=== PATIENT | female | born 1930 | race Caucasian/White ===

== ENCOUNTER 2019-01-13 19:46 | Inpatient (IN) | payer MEDICARE, BC ==
[~2019-01-13] VITALS: Ht 165.1 cm; Wt 83.4 kg
[2019-01-13] MEDS ORDERED: COZAAR100 MG PO (19:56)
[2019-01-13] MEDS ORDERED: ZOLOFT50 MG PO (19:56)
[2019-01-13] MEDS ORDERED: PLAVIX75 MG PO (19:56)
[2019-01-13] MEDS ORDERED: BAYER CHEWABLE81 MG PO (19:56)
[2019-01-13] MEDS ORDERED: VITAMIN D2000 UNIT PO (19:56)
[2019-01-13] MEDS ORDERED: HYDROCHLOROTH12.5 M1 PO (19:57)
[2019-01-13] MEDS ORDERED: BENTYL10 MG PO (19:57)
[2019-01-13 20:32] LABS: APTT 30.5 SECONDS (22.8-39.4); INR 1.28 (0.85-1.17); PROTIME 15.4 SECONDS (11.6-15.0)
[2019-01-13 20:34] LABS: HEMATOCRIT 39.5 % (36.0-48.0); HEMOGLOBIN 13.5 g/dL (12-16); MCH 28.3 pg (26.0-34.0); MCHC 34.2 g/dL (31.0-37.0); MCV 82.8 fL (80.0-100.0); MEAN PLATELET VOLUME 11.1 fL (7.4-10.4); PLATELET COUNT 457 10x3/uL (130-400); RBC 4.77 10x6/uL (4.00-5.40); RDW 13.5 % (11.5-14.5); WBC 23.1 10x3/uL (4.8-10.8)
[2019-01-13 20:37] LABS: APPEARANCE CLOUDY (CLEAR); BILIRUBIN NEGATIVE (NEGATIVE); COLOR YELLOW (YELLOW); GLUCOSE NEGATIVE (NEGATIVE); KETONE NEGATIVE (NEGATIVE); NITRITE NEGATIVE (NEGATIVE); PROTEIN 1+ mg/dL (NEGATIVE); UROBILINOGEN NORMAL (NORMAL)
[2019-01-13 20:39] LABS: ALBUMIN 2.2 g/dL (3.4-5.0); ALKALINE PHOSPHATASE 547 U/L (46-116); ALT (SGPT) 119 U/L (10-68); BILIRUBIN - TOTAL 0.85 mg/dL (0.2-1.3); CALC OSMOLALITY 285 mosm/kg (275-300); CALCIUM 8.9 mg/dL (8.5-10.1); CARBON DIOXIDE 25.9 mmol/L (21.0-32.0); CHLORIDE - SERUM 97 mmol/L (98-107); CREATININE - SERUM 2.6 mg/dL (0.6-1.3); GLUCOSE 149 mg/dL (74-106); SODIUM 133 mmol/L (136-145); UREA NITROGEN 61 mg/dL (7-18); eGFR NON AFRICAN AMERICAN 18 mL/min (90-120)
[2019-01-13 20:39] LABS: WHITE CELLS - URINE 0-5 /hpf (0-5)
[2019-01-13 20:40] LABS: BACTERIA MANY /hpf (NONE SEEN); RED CELLS - URINE 0-5 /hpf (0-5)
[2019-01-13 20:40] LABS: D-DIMER-QUANTITATIVE 7.17 ug/mLFEU (0.20-0.54)
[2019-01-13 20:53] LABS: LYMPHOCYTES 1 % (15-50); MONOCYTES 1 % (2-11); NEUTROPHILS 94 % (40-80); PLATELET ESTIMATE NORMAL
[2019-01-13 20:55] LABS: CREATINE KINASE 372 UL (21-215)
[2019-01-13 20:57] LABS: TROPONIN-I 0.459 ng/mL (0.000-0.060)
--- NOTE | 2019-01-13 22:20 | NUR ---
IV AZITHROMYCIN 500MG STARTED
--- NOTE | 2019-01-13 22:30 | NUR ---
STARTED IV AZITHROMYCIN
[2019-01-14] VITALS (7 sets, daily range): BP systolic 95–137; BP diastolic 42–84; Ht 165.1 cm; Wt 83.4 kg
--- NOTE | 2019-01-14 00:10 | NUR ---
PT ARRIVED TO FLOOR VIA STRETCHER WITH ER STAFF. TRANSFERRED TO BED PT WAS NOTED TO BE SATURATED WITH URINE OF A FOUL ODOR. COMPLETE LINEN CHANGE PERFORMED. PT THEN LEFT FLOOR VIA BED WITH RADIOLOGY FOR LUNG PERFUSION SCAN.
--- NOTE | 2019-01-14 01:44 | NUR ---
INFORMED MD OF VQ SCAN RESULTS. NO FURTHER ORDERS GIVEN AT THIS TIME.
[2019-01-14 07:08] LABS: ALBUMIN 1.8 g/dL (3.4-5.0); ANION GAP 11.8 mmol/L (8-16); BILIRUBIN - TOTAL 0.48 mg/dL (0.2-1.3); CALCIUM 8.4 mg/dL (8.5-10.1); CARBON DIOXIDE 26.8 mmol/L (21.0-32.0); CREATININE - SERUM 2.5 mg/dL (0.6-1.3); POTASSIUM - SERUM 3.6 mmol/L (3.5-5.1); PROTEIN - SERUM 5.8 g/dL (6.4-8.2)
[2019-01-14 07:39] LABS: BASOPHILS 0.1 % (0-2); EOSINOPHILS 0.1 % (0-7); HEMATOCRIT 34.6 % (36.0-48.0); HEMOGLOBIN 11.8 g/dL (12-16); IMMATURE GRANULOCYTES 0.6 % (0-5); LYMPHOCYTES 2.5 % (15-50); MCH 28.4 pg (26.0-34.0); MCHC 34.1 g/dL (31.0-37.0); MCV 83.2 fL (80.0-100.0); MEAN PLATELET VOLUME 11.2 fL (7.4-10.4); MONOCYTES 6.7 % (2-11); PLATELET COUNT 372 10x3/uL (130-400); RBC 4.16 10x6/uL (4.00-5.40); RDW 13.5 % (11.5-14.5)
[2019-01-14 07:40] LABS: WBC 15.8 10x3/uL (4.8-10.8)
--- NOTE | 2019-01-14 11:02 | NUR ---
CONCERN EXPRESSED IN REGARDS TO PATIENTS HR WHICH HAS BEEN MOSTLY >160 SINCE 0730 THIS AM AND SHE HAS SPOKE WITH POPPY ON MED 3 MULTIPLE TIMES WITH NO INTERVENTION. I PLACED A CALL TO DR TRUJILLO'S OFFICE. SPOKE WITH NURSE MARK. EXPLAINED THAT THE PATIENT WAS CURRENTLY 168 ATR[address] FLUTTER AND HER HR AND RYTHUM HAS BEEN AN ISSUE SINCE 0730 THIS AM AND IT WAS MY UNDERSTANDING THAT DR TRUJILLO HAS NOT BEEN NOTIFIED. ASKED IF HE WANTED US TO HAVE A CARDIOLOGY CONSULT AND POSSIBLY TRANSFER TO THE PCU. SHE STATED SHE WAS GOING TO TALK TO DR TRUJILLO AND CALL ME BACK. IN LESS THAN 2 MINUTES, RETURN CALL RECEIVED, ORDERS RECEIVED, READ BACK AND THEN ENTERED INTO THE SYSTEM. NOTIFIED AGUS ANGELINDIVIDUAL SMALL GROUP INSTRUCTOR. PT GOING TO ROOM 2122.
--- NOTE | 2019-01-15 02:20 | NUR ---
LAST DOSE OF IV DIGOXIN GIVEN. HR 96 CAF. PT RESTING/SOME MOANING AT TIMES. NOT CLEAR WHAT HER NEEDS ARE. SHE IS CLEAN/DRY AND REPOSITIONED FOR COMFORT.
[2019-01-15 04:00] VITALS: BP 112/49
--- NOTE | 2019-01-15 08:16 | NUR ---
BILAT SCD ON ORDERED.
[2019-01-15 08:33] VITALS: BP 107/49
--- NOTE | 2019-01-15 09:47 | NUR ---
TELEMETRY CAF. REPOSITIONED IN BED FOR COMFORT. BED ALARM ON FOR SAFTEY. WILL CONT. PLAN OF CARE.
--- NOTE | 2019-01-15 11:54 | NUR ---
ECHO COMPLETED AT BS.
[2019-01-15 12:16] VITALS: BP 97/51
[2019-01-15 15:45] VITALS: BP 106/55
--- NOTE | 2019-01-15 19:46 | NUR ---
INITIAL ROUNDS AND ASSESSMENT COMPLETED. PT RESTING. NO DISTRESS. MONITOR AND CPOC. CALL LIGHT IN REACH.
[2019-01-15 20:22] VITALS: BP 85/53
--- NOTE | 2019-01-15 20:57 | NUR ---
IV TO RIGHT A/C IS OUT. RESITED NEW 20G TO LFA X 1 ATTEMPT AND STARTED LR AT 75ML/HR AND IV ABT AT THIS TIME. BEDTIME MEDS GIVEN.
[2019-01-15 23:57] VITALS: BP 90/50
--- NOTE | 2019-01-16 03:49 | NUR ---
RESTING WITH NO DISTRESS. MONITOR AND CPOC.
[2019-01-16 05:05] LABS: BASOPHILS 0.1 % (0-2); EOSINOPHILS 0.1 % (0-7); HEMATOCRIT 36.4 % (36.0-48.0); HEMOGLOBIN 12.6 g/dL (12-16); IMMATURE GRANULOCYTES 0.9 % (0-5); LYMPHOCYTES 3.3 % (15-50); MCH 28.5 pg (26.0-34.0); MCHC 34.6 g/dL (31.0-37.0); MCV 82.4 fL (80.0-100.0); MEAN PLATELET VOLUME 11.3 fL (7.4-10.4); MONOCYTES 6.4 % (2-11); NEUTROPHILS 89.2 % (40-80); PLATELET COUNT 396 10x3/uL (130-400); RBC 4.42 10x6/uL (4.00-5.40); RDW 13.7 % (11.5-14.5); WBC 19.5 10x3/uL (4.8-10.8)
[2019-01-16 05:30] LABS: ALBUMIN 1.6 g/dL (3.4-5.0); BILIRUBIN - TOTAL 0.43 mg/dL (0.2-1.3); CALCIUM 8.2 mg/dL (8.5-10.1); CARBON DIOXIDE 22.9 mmol/L (21.0-32.0); POTASSIUM - SERUM 3.9 mmol/L (3.5-5.1); PROTEIN - SERUM 5.8 g/dL (6.4-8.2)
[2019-01-16 05:33] LABS: CREATININE - SERUM 1.1 mg/dL (0.6-1.3)
[2019-01-16 05:38] VITALS: BP 129/85
[2019-01-16 08:31] VITALS: BP 120/64
--- NOTE | 2019-01-16 11:30 | NUR ---
TELEMETRY CAF. REPOSITIONED IN BED FOR COMFORT. CALL LIGHT IN REACH. WILL CONT. PLAN OF CARE.
[2019-01-16 12:06] VITALS: BP 117/59
--- NOTE | 2019-01-16 14:44 | NUR ---
HAS NOT URINATED YET THIS SHIFT. BLADDER SCAN DONE. 215CC RESIDULE NOTED. WILL CONT. TO MONITOR.
[2019-01-16 15:04] VITALS: BP 123/55
--- NOTE | 2019-01-16 19:38 | NUR ---
INITIAL ROUNDS AND ASSESSMENT COMPLETED. PT RESTING IN BED. NO DISTRESS. MONITOR AND CPOC.
[2019-01-16 20:00] VITALS: BP 107/56
--- NOTE | 2019-01-16 22:34 | NUR ---
BEDTIME MEDS GIVEN. PT INCONTINENT OF SOFT FORM BM. INCONTINENCE CARE/BATH GIVEN. LINENS CHANGE. IV ABT UP AND INFUSING. PT CONFUSED. BED ALARM IN PLACE. SR UP X 2. CALL LIGHT IN REACH.
[2019-01-17] VITALS: BP 114/49
[2019-01-17 04:00] VITALS: BP 120/70
[2019-01-17 06:23] LABS: ALBUMIN 1.6 g/dL (3.4-5.0); ANION GAP 13.5 mmol/L (8-16); BILIRUBIN - TOTAL 0.4 mg/dL (0.2-1.3); CALCIUM 8.3 mg/dL (8.5-10.1); CARBON DIOXIDE 25.3 mmol/L (21.0-32.0); CREATININE - SERUM 0.9 mg/dL (0.6-1.3); POTASSIUM - SERUM 3.8 mmol/L (3.5-5.1); PROTEIN - SERUM 5.7 g/dL (6.4-8.2)
[2019-01-17 06:26] LABS: HEMATOCRIT 34.9 % (36.0-48.0); HEMOGLOBIN 11.9 g/dL (12-16); MCH 28.1 pg (26.0-34.0); MCHC 34.1 g/dL (31.0-37.0); MCV 82.5 fL (80.0-100.0); MEAN PLATELET VOLUME 11.3 fL (7.4-10.4); PLATELET COUNT 413 10x3/uL (130-400); RBC 4.23 10x6/uL (4.00-5.40); RDW 13.9 % (11.5-14.5); WBC 22.1 10x3/uL (4.8-10.8)
--- NOTE | 2019-01-17 07:27 | NUR ---
ROUNDING DONE WITH PATIENT RECEIVING UPDRAFT TREATMENT AT THIS TIME. ON 4L PER NC. ON HEART MONITOR SHOWING CAF, HR 64. LEFT FA PIV SEEN WITH NS INFUSING AT 75 CC/HR. ORANGE SWAB CAPS PLACED. ALLEN MAT ALARM IS ON AND IN USE.
[2019-01-17 08:16] LABS: LYMPHOCYTES 9 % (15-50); MONOCYTES 14 % (2-11); NEUTROPHILS 73 % (40-80); PLATELET ESTIMATE INCREASED
[2019-01-17 08:18] LABS: ANISOCYTOSIS OCC; SMUDGE CELLS OCC
[2019-01-17 09:04] VITALS: BP 132/52
--- NOTE | 2019-01-17 09:12 | NUR ---
BOTTOM IS RED AND EXCORATED, BUTT PASTE IS APPLIED.
--- NOTE | 2019-01-17 13:43 | NUR ---
TRIED TO GET PATIENT TO EAT AND DRINK, SHE DRANK A LITTLE OF HER GLUCERNA.
--- NOTE | 2019-01-17 13:54 | NUR ---
Nutrition follow-up: Diet: Regular PO intake ~25% of some meals Pt drank a little Glucerna today at breakfast Labs reviewed; LFT's elevated +BM Wt: 180# Pt needs assistance with meals due to confusion RDN following.
--- NOTE | 2019-01-17 17:03 | MORECARE ---
CASE MANAGEMENT DISCHARGE SUMMARY PATIENT: ROSIE DUFFY UNIT: [id number] ADM DATE: 01/13/19 AGE: 88 : [birth year] SEX: F ROOM/BED: D.0053 AUTHOR: KRITSIAN,DOC PHYSICIAN: REFERRING PHYSICIAN: VIRAJ TRUJILLO MD DATE OF SERVICE: 01/17/19 Discharge Plan Patient Name: ROSIE DUFFY Facility: [facility]:[place] : 1930 Planned Disposition: Home Anticipated Discharge Date: 01/18/19 Discharge Date: Expected LOS: 5 Initial Reviewer: [email or web address] Initial Review Date: 01/17/2019 Generated: 01/17/19 6:03 pm Comments DCP- Discharge Planning Updated by [id number]: Christopher Diaz on 01/17/19 3:[address] Patient Name: ROSIE DUFFY Admission Status: ER Accout number: [id number] Admission Date: 01-13-2019 : 1930 Admission Diagnosis:WEAKNESS Attending: VIRAJ TRUJILLO Current LOS: 4 Anticipated DC Date: 01-18-2019 Planned Disposition: Home Primary Insurance: MEDICARE A & B Discharge Planning Comments: CM MET WITH PT IN ROOM TO DISCUSS DISCHARGE PLANNING AND NEEDS. PT ORIENTED TO SELF ONLY, WAS NOT ABLE TO SIGNIFICANTLY PARTICIPATE IN ASSESSMENT. CM LOCATED PT'S SPOUSE IN HOSPITAL ROOM 2237 WHERE HE IS ALSO A PATIENT. PT'S SPOUSE REPORTS LIVING AT HOME WITH PT; PT ALSO HAS ADULT FAMILY MEMBERS IN THE HOME ASSISTING WITH HER CARE DAILY. PT DOES REQUIRE ASSISTANCE WITH MEDICATION MANAGEMENT. PT HAS A CANE THAT SHE DOES NOT USE AND NO MEDICAL EQUIPMENT PROVIDER PREFERENCE. PT HAS NO OUTSIDE SERVICES ASSISTING IN THE HOME. CM DISCUSSED AVAILABILITY OF HOME HEALTH, REHAB SERVICES AND MEDICAL EQUIPMENT. PT'S SPOUSE DENIES DISCHARGE NEEDS, REPORTS PT'S DAUGHTER IN LAW, LELA, WILL PICK HER UP FOR DISCHARGE HOME. IMPORTANT MESSAGE FROM MEDICARE PROVIDED AND EXPLAINED. PT'S SPOUSE REPORTS PT LIVES AT HOME AND HAS FAMILY ASSISTANCE FOR SUPERVISION AND CARE NEEDED. PT'S SPOUSE DOES NOT ANTICIPATE ANY DISCHARGE NEEDS. CM TO FOLLOW AND ASSIST IF NEEDED. Game Agent: Christopher Diaz DCPIA - Discharge Planning Initial Assessment Updated by [id number]: Christopher Diaz on 01/17/19 4:54 pm * Is the patient Alert and Oriented? Yes * How many steps to enter\exit or inside your home? NONE * PCP DR. TRUJILLO * Pharmacy [facility] * Preadmission Environment Home with Family * ADLs Partial Dependent * Partial ADLs (Assistance needed) Medication Management * Equipment Cane * Other Equipment NO MEDICAL EQUIPMENT PROVIDER PREFERENCE * List name and contact numbers for known caregivers / representatives who currently or will assist patient after discharge: KINGA TATI, SPOUSE, LELA CM, DTR IN LAW, [place] [phone] * Verbal permission to speak to the caregivers and representatives has been obtained from the patient. Yes * Community resources currently utilized None * Please name any agencies selected above. NONE * Additional services required to return to the preadmission environment? No * Can the patient safely return to the preadmission environment? Yes * Has this patient been hospitalized within the prior 30 days at any hospital? No Coverage Notice Reviewer: [id number] Rafiq Diaz Notice Issued Date-Time: 01/17/2019 14:45 Notice Type: IM Discharge Notice Notice Delivered To: Patient Relationship to Patient: Access Director Name: Delivery Method: HAND - Hand Delivered Eufemia Days: Prior Verbal Notification: Recipient Understood Notice: Recipient Signature: Yes Med Rec Note Co-signed by Attending: Coverage Notice Comment: Patient Name: ROSIE DUFFY Page 30954 at 1703 All edits/amendments must be made on the electronic document DICTATION DATE: 01/17/191701 WHITE WASHER PILER: DONNA 01/17/191701 RPT#: [id number] DC DATE: STATUS: ADM IN [facility] [address] [place] [address] END OF REPORT
[2019-01-17 17:08] VITALS: BP 114/46
[2019-01-17 18:38] VITALS: BP 135/67
--- NOTE | 2019-01-17 19:18 | NUR ---
RESUMING PATIENT CARE. PATIENT ALERT RESTING COMFORTABLY IN BED. RESPIRATIONS ARE EVEN AND UNLABORED. NO S/S OF DISTRESS. NO C/O PAIN. CALL LIGHT WITHIN REACH. WILL CPOC.
[2019-01-17 20:00] VITALS: BP 132/46
[2019-01-18] VITALS (18 sets, daily range): BP systolic 91–181; BP diastolic 46–82
[2019-01-18 06:08] LABS: BASOPHILS 0.1 % (0-2); EOSINOPHILS 0.1 % (0-7); HEMATOCRIT 35.6 % (36.0-48.0); HEMOGLOBIN 11.8 g/dL (12-16); IMMATURE GRANULOCYTES 3.7 % (0-5); LYMPHOCYTES 4.9 % (15-50); MCHC 33.1 g/dL (31.0-37.0); MCV 84.4 fL (80.0-100.0); MEAN PLATELET VOLUME 10.5 fL (7.4-10.4); MONOCYTES 7.9 % (2-11); NEUTROPHILS 83.3 % (40-80); PLATELET COUNT 442 10x3/uL (130-400); RBC 4.22 10x6/uL (4.00-5.40); RDW 14.4 % (11.5-14.5); WBC 19.9 10x3/uL (4.8-10.8)
[2019-01-18 06:44] LABS: ALBUMIN 1.8 g/dL (3.4-5.0); ANION GAP 14.2 mmol/L (8-16); BILIRUBIN - TOTAL 0.4 mg/dL (0.2-1.3); CALCIUM 8.2 mg/dL (8.5-10.1); CARBON DIOXIDE 23.7 mmol/L (21.0-32.0); CREATININE - SERUM 0.8 mg/dL (0.6-1.3); POTASSIUM - SERUM 3.9 mmol/L (3.5-5.1)
--- NOTE | 2019-01-18 06:51 | NUR ---
STARTED AZITHROMAX 500MG AT 2114
--- NOTE | 2019-01-18 07:18 | NUR ---
ROUNDING DONE WITH ALLEN MAT ALARM ON AND IN USE. ON HEART MONITOR SHOWING CAF, HR 76. ON 4L PER NC. LEFT FA PIV SEEN WITH NS INFUSING AT 75 CC/HR, ORANGE SWAB CAP IN USE. DENIES NEEDS.
--- NOTE | 2019-01-18 07:53 | NUR ---
PATIENT STATES SHE IS HAVING TROUBLE BREATHING, SLIGHT CRACKLES HEARD. PAGE INTO DR MURPHY FOR NEW ORDERS.
--- NOTE | 2019-01-18 08:07 | NUR ---
CALLED DR MORA FOR NEW ORDERS.
--- NOTE | 2019-01-18 08:40 | NUR ---
NEW ORDERS PER DR MORA,
--- NOTE | 2019-01-18 08:56 | NUR ---
TRANSFERRED TO ICU. DR MORA IS AWARE.
[2019-01-18 09:35] LABS: CKMB 1.1 U/L (0.0-3.6); CREATINE KINASE 23 UL (21-215)
[2019-01-18 09:37] LABS: TROPONIN-I < 0.017 ng/mL (0.000-0.060)
--- NOTE | 2019-01-18 09:57 | NUR ---
PT TOOK OFF BIPAP. KEEPS FIGHTING IT AND WILL NOT KEEP ON FACE, KEEPS TAKING MASK OFF. PER NURSE JONATHAN LEAVE BIPAP OFF UNTIL TALKS WITH FAMILY MEMBER.
--- NOTE | 2019-01-18 10:10 | NUR ---
VÍCTOR CALLED GIVEN UPDATE PT STATUS STATED WISHES PT TO BE COMFORT MEASURES. STATED WAS ON HER WAY. DR VALENZUELA GIVEN UPDATE
[2019-01-18 10:14] LABS: HEMATOCRIT 39.9 % (36.0-48.0); HEMOGLOBIN 13.4 g/dL (12-16); MCH 28.8 pg (26.0-34.0); MCHC 33.6 g/dL (31.0-37.0); MCV 85.6 fL (80.0-100.0); MEAN PLATELET VOLUME 10.9 fL (7.4-10.4); PLATELET COUNT 597 10x3/uL (130-400); RBC 4.66 10x6/uL (4.00-5.40); RDW 14.6 % (11.5-14.5); WBC 22.2 10x3/uL (4.8-10.8)
--- NOTE | 2019-01-18 10:27 | NUR ---
DR VALENZUELA CALLED BACK GIVEN UPDATE. +D-DIMER AND COMFORT STATUS STATED OKAY
[2019-01-18 10:29] LABS: ALBUMIN 1.9 g/dL (3.4-5.0); BILIRUBIN - TOTAL 0.78 mg/dL (0.2-1.3); CALCIUM 8.8 mg/dL (8.5-10.1); PROTEIN - SERUM 6.6 g/dL (6.4-8.2)
[2019-01-18 10:59] LABS: LYMPHOCYTES 6 % (15-50); MONOCYTES 15 % (2-11); NEUTROPHILS 74 % (40-80); PLATELET ESTIMATE INCREASED
[2019-01-18 11:00] LABS: ROULEAUX OCC
--- NOTE | 2019-01-18 11:00 | NUR ---
REASSESSMENT COMPLETE PER FLOW SHEET
--- NOTE | 2019-01-18 12:15 | NUR ---
DR TRUJILLO AT BEDSIDE GIVEN UDPATE
--- NOTE | 2019-01-18 13:00 | NUR ---
DAUGHTER AND AT BEDSIDE GIVEN UPDATE. PT MADE DNR INCLUDING NO EMERGENCY MEDICATIONS, NO PRESSERS OR LIFE SUSTAINING DPPS. DAUGHTER STATED PT IS NOT TO BE PUT IN RESTRAINTS TO KEEP BIPAP ON. IF PT WILL NOT KEEP BIPAP ON IT IS TO REMAIN OFF. STATED OKAY.
--- NOTE | 2019-01-18 15:00 | NUR ---
REASSESSMENT COMPLETE PER FLOW SHEET
--- NOTE | 2019-01-18 16:15 | NUR ---
DAUGHTER AT BEDSIDE KATIE PUENTES
--- NOTE | 2019-01-18 17:40 | NUR ---
PARTIAL BB LINEN CHANGE ADM. PT INCONTENENT OF URINE.
--- NOTE | 2019-01-18 19:05 | NUR ---
Received patient resting in bed with eyes open, assessment completed per flowsheet. Patient does not respond verbally to questions, follows commands weakly. S1/S2 noted NSR on telemetry with HR 81, rythmic and regular. Breathing is shallow/tachypneic on 4L via NC with o2 sat 97%, lung sounds clear bilateral upper with diminished mid and lower. Abdomen is round/soft with bowel sounds active x4, non-tender. All pulses palpable with cap refill < 3 sec, skin warm/dry. Repositioned for comfort, no further needs at this time. See flowsheet for details, all VSS and will continue to monitor.
--- NOTE | 2019-01-18 19:12 | NUR ---
AT 1828 I DID AN ABG WHILE PT WAS ON BIPAP. RESULTS WERE PH 7.4, CO2 36 AND PO2 103. SPOKE WITH NURSE DECIDED TO GIVE PT A BREAK FROM BIPAP. SHE IS ON 3L NC SATS 94% WILL RESUME BIPAP HS
--- NOTE | 2019-01-18 21:00 | NUR ---
HS meds given PO without difficulty, slight cough noted post swallow with no choking evident. Patient stated no further needs, will continue to monitor.
--- NOTE | 2019-01-18 22:50 | NUR ---
Reassessment completed per flowsheet, no changes noted from previous assessment. S1/S2 noted Sinus Jaret on telemetry with HR 55, rythmic and regular. Breathing is shallow/tachypneic on BiPAP 50% with O2 sat 97%, lung sounds clear bilateral upper with diminished mid and lower. All pulses palpable with cap refill < 3 sec, skin warm/dry. Denies pain or other needs at this time, see flowsheet for details. All VSS and will continue to monitor.
[2019-01-19] VITALS (8 sets, daily range): BP systolic 101–133; BP diastolic 56–82
--- NOTE | 2019-01-19 01:00 | NUR ---
Patient resting in bed with eyes closed, no s/s of distress at this time. Denies pain or other needs at this time, all VSS and will continue to monitor.
--- NOTE | 2019-01-19 03:00 | NUR ---
Reassessment completed per flowsheet, no changes noted from previous assessment. Patient disoriented to time/place/situation, follows commands. S1/S2 noted NSR on telemetry with HR 68, rythmic and regular. Breathing is shallow/tachypneic on room air with O2 sat 94%, lung sounds clear bilateral upper with diminished mid and lower. All pulses palpable with cap refill < 3 sec, skin warm/dry. Denies pain or other needs at this time, see flowsheet for details. All VSS and will continue to monitor.
[2019-01-19 04:00] LABS: BASOPHILS 0.2 % (0-2); EOSINOPHILS 0 % (0-7); HEMATOCRIT 36.6 % (36.0-48.0); HEMOGLOBIN 12.4 g/dL (12-16); IMMATURE GRANULOCYTES 4.9 % (0-5); LYMPHOCYTES 4.7 % (15-50); MCH 28.2 pg (26.0-34.0); MCHC 33.9 g/dL (31.0-37.0); MCV 83.2 fL (80.0-100.0); MEAN PLATELET VOLUME 11.4 fL (7.4-10.4); MONOCYTES 4.6 % (2-11); NEUTROPHILS 85.6 % (40-80); PLATELET COUNT 373 10x3/uL (130-400); RDW 14.3 % (11.5-14.5); WBC 23.5 10x3/uL (4.8-10.8)
[2019-01-19 04:10] LABS: ALBUMIN 1.8 g/dL (3.4-5.0); ALKALINE PHOSPHATASE 509 U/L (46-116); BILIRUBIN - TOTAL 0.56 mg/dL (0.2-1.3); CALCIUM 8.4 mg/dL (8.5-10.1); CARBON DIOXIDE 24.3 mmol/L (21.0-32.0); CHLORIDE - SERUM 110 mmol/L (98-107); CREATININE - SERUM 1.2 mg/dL (0.6-1.3); PROTEIN - SERUM 5.8 g/dL (6.4-8.2); SODIUM 145 mmol/L (136-145); eGFR NON AFRICAN AMERICAN 45 mL/min (90-120)
[2019-01-19 04:14] LABS: ALT (SGPT) 3766 U/L (10-68); CALC OSMOLALITY 299 mosm/kg (275-300); GLUCOSE 119 mg/dL (74-106); POTASSIUM - SERUM 4.1 mmol/L (3.5-5.1); UREA NITROGEN 40 mg/dL (7-18)
--- NOTE | 2019-01-19 07:00 | NUR ---
REPORT RECEIVED. ASSESSMENT COMPLETE PER FLOW SHEET. VSS. NO NEW CHANGES PT RESTING COMFORTABLY WILL CONTNIUE TO MONITOR
--- NOTE | 2019-01-19 09:40 | NUR ---
Nutrition follow-up: Pt is now in ICU. Visited with pt 01/18 during breakfast and pt did not want anything to eat due to breathing issues Diet: Regular as tolerated PO Intake remains poor Labs reviewed Wt: 183# RDN following.
--- NOTE | 2019-01-19 11:19 | CN ---
PATIENT NAME:ROSIE WHELAN MEDICAL RECORD: [id number] : [birth year] LOCATION:[id number] ADMIT DATE: 01/13/19 ACCOUNT: [id number] CONSULTING PHYSICIAN: GIULIANA LUCAS MD REFERRING PHYSICIAN: VIRAJ TRUJILLO MD DATE OF CONSULTATION: 01/14/2019 DIAGNOSES: 1. Atrial fibrillation with rapid ventricular response. 2. Pneumonia. 3. Hypertension. 4. Urinary tract infection. HISTORY OF PRESENT ILLNESS: Ms. Whelan presents with generalized weakness. She was on the rehab after being treated for pneumonia and UTI, found to be in tachyarrhythmia, and transferred to the floor. She is in atrial fibrillation with rapid ventricular response. She has no history of atrial fibrillation, no cardiac history. Heart rates in the 150s. PHYSICAL EXAMINATION: GENERAL APPEARANCE: Well-nourished, well-developed, appears stated age. Level of distress, comfortable. PSYCHIATRIC: Mental status, alert, normal affect. Orientation, oriented to time, place and person. EYES: Lids and conjunctiva, noninjected. No discharge, no pallor. ENT: Lips, teeth, gums, normal dentition. Oropharynx, no cyanosis, no pallor. NECK: Carotid arteries, bilateral normal upstroke, no bruits, no thrills. JUGULAR VEINS: No jugular venous pressure or distention. CERVICAL LYMPH NODES: Nontender, nonenlarged. THYROID: Not enlarged. Nontender. No nodules. LUNGS: Respiratory effort, unlabored. CHEST: Normal curvature. No thoracic deformity. No chest wall tenderness. Percussion, resonant. Auscultation, clear. No wheezes, no rales, no rhonchi. CARDIOVASCULAR: Precordial exam, nondisplaced. No heaves or pericardial thrills. Rate and rhythm, regular. Heart sounds, normal S1, normal S2. No S3, no gallop, no rub. Systolic murmur, not heard. Diastolic murmur, not heard. EXTREMITIES: No cyanosis, no edema. Peripheral pulses, full and equal in all extremities, except as noted. No bruits appreciated. ABDOMEN: Soft, nondistended. Normal aorta. No bruit. Nontender. No masses. Liver, nontender, no hepatomegaly. Spleen, nontender, no splenomegaly. MUSCULOSKELETAL: No joint tenderness. No joint swelling. No erythema. NEUROLOGICAL: Normal gait, normal strength, normal tone. SKIN: Warm and dry. OVERALL IMPRESSION: Atrial fibrillation with rapid ventricular response. Systolic blood pressure is 90-100. We will load with IV digoxin as well as start p.o. sotalol, get an echocardiogram. No other workup or treatment is necessary at this time. TRANSINT:[id number] Voice Confirmation ID: [id number] DOCUMENT ID: [id number] CONSULT REPORT [id number] ROSIE WHELAN, GIULIANA BAIN at 1119 CC: [id number] DICTATION DATE: 01/14/19 1354 FLIGHT ATTENDANT/INFLIGHT SUPERVISOR: 01/14/19 1603 ADM IN [facility] [address] [place] [id number]
--- NOTE | 2019-01-19 11:19 | EC ---
PATIENT:ROSIE DUFFY DATE OF SERVICE: 01/13/19 SEX: F MEDICAL RECORD: [id number] DATE OF : [birth year] LOCATION:[facility] D230 AGE OF PATIENT: 88 ADMISSION DATE: 01/13/19 REFERRING PHYSICIAN: INTERPRETING PHYSICIAN: GIULIANA KIRAN MD ECHOCARDIOGRAM REPORT ECHO CHARGES 4 ECHO COMPLETE Date: 01/15/19 CLINICAL DIAGNOSIS: AF ECHOCARDIOGRAPHIC MEASUREMENTS (adult normal given) AC root (d.<3.7cm) 3.2 cm LV Septum d (<1.2 cm> 0.8 cm Valve Excursion 1.9 cm LV Septum (systole) 1.6 cm Left Atria (s.<4.0cm> 2.4 cm LVPW d(<1.2cm) 0.9 cm RV (d.<2.3cm) 2.9 cm LVPW (sytole) 1.2 cm LV diastole(<5.6CM) 4.9 cm MV E-F(>70mm/sec) cm LV systole 3.2 cm LVOT Diameter 1.7 cm MV exc.(>10mm) cm Est.ejection fraction (50-75%) % DOPPLER: LVIT cm/sec A 25 cm/sec E 75 cm/sec LA cm/sec RVSP 39.5 mmHg LVOT 84 cm/sec AOP1/2T m/s Asc. Ao 123 cm/sec RVOT 68 cm/sec RA cm/sec PA 69 cm/sec AV Gradient Peak 6.1 mmHg AV Mean 2.8 mmHg AV Area 2.0 cm MV Gradient Peak 3.7 mmHg MV Mean 1.2 mmHg MV Area cm COMMENTS: Tile Designer: Tyron BAXTER Tool And Die Technician: 1 Dr. Kiran TAPE# PACS Pericardial Effusion N DATE OF SERVICE: 01/15/2019 FINDINGS: 1. Left ventricular chamber size is within normal limits. Left ventricular systolic function is normal. Overall ejection fraction estimated at 55% to 60%. 2. Left atrium, right atrium, and right ventricular chamber sizes are within normal limits. 3. Valvular structures have normal structure and motion. 4. Doppler interrogation reveals mild tricuspid regurgitation. No other valvular insufficiency or stenosis. ECHOCARDIOGRAM REPORT [id number] ROSIE DUFFY 5. No evidence of pericardial effusion or left ventricular thrombus. TRANSINT:[id number] Voice Confirmation ID: [id number] DOCUMENT ID: [id number] GIULIANA KIRAN MD at 1119 CC: [id number] DICTATION DATE: 01/16/19 1022 DIRECTOR INFORMATION SECURITY: 01/16/19 1411 ADM IN [facility] [address] [id number]
--- NOTE | 2019-01-19 17:15 | NUR ---
RECIEVED PT FROM AGUS ROSARIO, ICU. TRANS PT TO BED. NO S/S OF ACUTE DISTRESS. DAUGHTER AT BEDSIDE BRUSHING PT HAIR. NO S/S OF ACUTE DISTRESS. CL IN PLACE.
--- NOTE | 2019-01-19 18:41 | NUR ---
DAUGHTER IN WITH PT HELPING PT ON BED RHODES. 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 CL IN PLACE.
--- NOTE | 2019-01-19 20:45 | NUR ---
PT BECOMING VERY COMPATIVE WITH HER DAUGHTER. PT VERY AGITATED. RESPIRATORY RATE IN THE 30S WILL CALL DOCTOR. WILL FALLOW UP.
--- NOTE | 2019-01-19 21:15 | NUR ---
PT PLACED ON BIPAP. RESPIRATORY RATE IN THE 40S. BREATHING TREATMENT GIVEN. ATIVAN IV ONE TIME GIVEN PER DR ORDER. WILL FALLOW UP.
--- NOTE | 2019-01-19 23:00 | NUR ---
PT RESTING WITH RESPIRATORY RATE 47. CALLED DR. VALENZUELA NO NEW ORDERS AT THIS TIME. WILL KEEP PT ON BIPAP AND CLOSELY MONITOR.
[2019-01-20 00:47] VITALS: BP 138/70
--- NOTE | 2019-01-20 02:59 | NUR ---
PT KEEPS PULLING BIPAP OFF. BECOMING VERY AGITATED. I DID TAKE BIPAP OFF AND PLACE 2LO2 NASAL CANNULA. WILL FALLOW UP.
--- NOTE | 2019-01-20 03:12 | NUR ---
I have reviewed this patient and I concur with the Shift Assessment completed by the Licensed Practical Nurse today this shift.
[2019-01-20 05:23] VITALS: BP 136/57
[2019-01-20 07:19] LABS: ALBUMIN 1.9 g/dL (3.4-5.0); BILIRUBIN - TOTAL 0.8 mg/dL (0.2-1.3); CALCIUM 8.4 mg/dL (8.5-10.1); CARBON DIOXIDE 27.2 mmol/L (21.0-32.0); CREATININE - SERUM 1.3 mg/dL (0.6-1.3)
[2019-01-20 07:20] LABS: ANION GAP 14.9 mmol/L (8-16); POTASSIUM - SERUM 3.1 mmol/L (3.5-5.1)
[2019-01-20 07:49] LABS: HEMATOCRIT 39.3 % (36.0-48.0); HEMOGLOBIN 13.3 g/dL (12-16); MCH 28.3 pg (26.0-34.0); MCHC 33.8 g/dL (31.0-37.0); MCV 83.6 fL (80.0-100.0); MEAN PLATELET VOLUME 11.5 fL (7.4-10.4); PLATELET COUNT 414 10x3/uL (130-400); RDW 14.5 % (11.5-14.5); WBC 20.3 10x3/uL (4.8-10.8)
--- NOTE | 2019-01-20 08:07 | NUR ---
PT RESTING IN BED. O2 @ 2 LITERS NC. RESP-26. CHEST RISING AND FALLING. NO S/S OF ACUTE DISTRESS. CL IN PLACE.
[2019-01-20 08:15] LABS: ANISOCYTOSIS OCC; LYMPHOCYTES 9 % (15-50); MONOCYTES 10 % (2-11); NEUTROPHILS 75 % (40-80); PLATELET ESTIMATE INCREASED
[2019-01-20 08:55] VITALS: BP 112/85
[2019-01-20 12:24] VITALS: BP 136/61
--- NOTE | 2019-01-20 13:16 | NUR ---
IV INFILTRATED. DC IV WITH TIP IN TACT. RESITED IV TO L AC. FLUSHED WELL. NO REDDNESS OR SWELLING NOTED. SEWAGE PLANT ATTENDANT ASSITED PT WITH MEAL. NO S/S OF ACUTE DISTRESS. CL IN PLACE.
--- NOTE | 2019-01-20 13:27 | MORECARE ---
CASE MANAGEMENT DISCHARGE SUMMARY PATIENT: ROSIE DUFFY UNIT: [id number] ADM DATE: 01/13/19 AGE: 88 : [birth year] SEX: F ROOM/BED: D.2231 AUTHOR: KRISTIAN,DOC PHYSICIAN: REFERRING PHYSICIAN: VIRAJ TRUJILLO MD DATE OF SERVICE: 01/20/19 Discharge Plan Patient Name: ROSIE DUFFY Facility: [facility]:[place] : 1930 Planned Disposition: Home Anticipated Discharge Date: 01/18/19 Discharge Date: Expected LOS: 5 Initial Reviewer: [email or web address] Initial Review Date: 01/17/2019 Generated: 01/20/19 2:27 pm Comments DCP- Discharge Planning Updated by [email or web address]: Criss Echols on 01/20/19 12:[address] Spoke with patient's daughter on the phone and she would like a referral sent to [facility] for SNF. I spoke with masha Ledezma for the [facility], and clinical faxed. CM will continue to follow and assist with discharge planning/needs. DCP- Discharge Planning Updated by [email or web address]: Christopher Diaz on 01/17/19 3:[address] Patient Name: ROSIE DUFFY Admission Status: ER Accout number: [id number] Admission Date: 01-13-2019 : 1930 Admission Diagnosis:WEAKNESS Attending: VIRAJ TRUJILLO Current LOS: 4 Anticipated DC Date: 01-18-2019 Planned Disposition: Home Primary Insurance: MEDICARE A & B Discharge Planning Comments: CM MET WITH PT IN ROOM TO DISCUSS DISCHARGE PLANNING AND NEEDS. PT ORIENTED TO SELF ONLY, WAS NOT ABLE TO SIGNIFICANTLY PARTICIPATE IN ASSESSMENT. CM LOCATED PT'S SPOUSE IN HOSPITAL ROOM 2237 WHERE HE IS ALSO A PATIENT. PT'S SPOUSE REPORTS LIVING AT HOME WITH PT; PT ALSO HAS ADULT FAMILY MEMBERS IN THE HOME ASSISTING WITH HER CARE DAILY. PT DOES REQUIRE ASSISTANCE WITH MEDICATION MANAGEMENT. PT HAS A CANE THAT SHE DOES NOT USE AND NO MEDICAL EQUIPMENT PROVIDER PREFERENCE. PT HAS NO OUTSIDE SERVICES ASSISTING IN THE HOME. CM DISCUSSED AVAILABILITY OF HOME HEALTH, REHAB SERVICES AND MEDICAL EQUIPMENT. PT'S SPOUSE DENIES DISCHARGE NEEDS, REPORTS PT'S DAUGHTER IN LAW, LELA, WILL PICK HER UP FOR DISCHARGE HOME. IMPORTANT MESSAGE FROM MEDICARE PROVIDED AND EXPLAINED. PT'S SPOUSE REPORTS PT LIVES AT HOME AND HAS FAMILY ASSISTANCE FOR SUPERVISION AND CARE NEEDED. PT'S SPOUSE DOES NOT ANTICIPATE ANY DISCHARGE NEEDS. CM TO FOLLOW AND ASSIST IF NEEDED. Hot Mix Operator: Christopher Diaz DCPIA - Discharge Planning Initial Assessment Updated by [id number]: Christopher Diaz on 01/17/19 4:54 pm * Is the patient Alert and Oriented? Yes * How many steps to enter\exit or inside your home? NONE * PCP DR. TRUJILLO * Pharmacy [facility] * Preadmission Environment Home with Family * ADLs Partial Dependent * Partial ADLs (Assistance needed) Medication Management * Equipment Cane * Other Equipment NO MEDICAL EQUIPMENT PROVIDER PREFERENCE * List name and contact numbers for known caregivers / representatives who currently or will assist patient after discharge: KINGA TATI, SPOUSE, LELA CM, DTR IN [place], [place] [phone] * Verbal permission to speak to the caregivers and representatives has been obtained from the patient. Yes * Community resources currently utilized None * Please name any agencies selected above. NONE * Additional services required to return to the preadmission environment? No * Can the patient safely return to the preadmission environment? Yes * Has this patient been hospitalized within the prior 30 days at any hospital? No External Providers External Provider: [facility] [place] Next Contact Date: Service Request Date: Service Type: Resolution: Reviewer: Comments: Coverage Notice Reviewer: [id number] - Christopher Diaz Notice Issued Date-Time: 01/17/2019 14:45 Notice Type: IM Discharge Notice Notice Delivered To: Patient Relationship to Patient: [employer] Former [employer] Name: Delivery Method: HAND - Hand Delivered Eufemia Days: Prior Verbal Notification: Recipient Understood Notice: Recipient Signature: Yes Med Rec Note Co-signed by Attending: Coverage Notice Comment: Reviewer: [email or web address] - Criss Echols Notice Issued Date-Time: 01/20/2019 13:22 Notice Type: Patient Choice Letter Notice Delivered To: Family Member Relationship to Patient: Daughter [employer] Former [employer] Name: Savanna Cm Delivery Method: PHONE - Phone Eufemia Days: Prior Verbal Notification: Recipient Understood Notice: Yes Recipient Signature: Med Rec Note Co-signed by Attending: Coverage Notice Comment: [facility] for [facility] DP export: 01/17/19 4:03 p Patient Name: ROSIE DUFFY Page [id number] at 1327 All edits/amendments must be made on the electronic document DICTATION DATE: 01/20/196 REPEATER CHIEF: DONNA 01/20/19 1326 RPT#: [id number] DC DATE: STATUS: ADM IN [facility] [address] [place] [address] END OF REPORT
--- NOTE | 2019-01-20 15:30 | NUR ---
PT DC IV. APPLIED 2X2 GAUZE. SPOKE WITH DR TRUJILLO WHO IS GOING TO CHANGE ALL PT MEDS TO PO. BLOOD DONOR RECRUITER ASSISTED ME WITH CHANGING AND TURING PT. NO S/S OF ACUTE DISTRESS. CL IN PLACE
[2019-01-20 17:34] VITALS: BP 105/53
[2019-01-20 20:00] VITALS: BP 133/47
[2019-01-21] VITALS: BP 137/52
[2019-01-21 04:00] VITALS: BP 150/62
[2019-01-21 06:20] LABS: ANION GAP 10.5 mmol/L (8-16); CALCIUM 8.4 mg/dL (8.5-10.1); CARBON DIOXIDE 30.8 mmol/L (21.0-32.0); CREATININE - SERUM 1.2 mg/dL (0.6-1.3); POTASSIUM - SERUM 3.3 mmol/L (3.5-5.1)
[2019-01-21 06:27] LABS: BASOPHILS 0.2 % (0-2); EOSINOPHILS 0.1 % (0-7); HEMOGLOBIN 13.6 g/dL (12-16); IMMATURE GRANULOCYTES 4.1 % (0-5); LYMPHOCYTES 7.8 % (15-50); MCH 28.3 pg (26.0-34.0); MCV 83.2 fL (80.0-100.0); MONOCYTES 8.3 % (2-11); NEUTROPHILS 79.5 % (40-80); PLATELET COUNT 439 10x3/uL (130-400); RBC 4.81 10x6/uL (4.00-5.40); RDW 14.4 % (11.5-14.5); WBC 19.4 10x3/uL (4.8-10.8)
--- NOTE | 2019-01-21 07:36 | NUR ---
SLEEPING. LUNGS DIMINISHED BILATERALLY. HEART SOUNDS S1 AND S2 HEARD IN ALL [place]. BOWEL SOUNDS ACTIVE X 4. REDNESS NOTED TO BOTTOM WITH NO BREAKDOWN AT THIS TIME. NO IV. MD AWARE. BED LOW. FALL PRECAUTIONS IN PLACE. CALL ZACARIAS AND PERSONAL ITEMS IN REACH. WILL CONTINUE TO MONITOR.
--- NOTE | 2019-01-21 07:36 | NUR ---
ASSESSED, AT THE BEGINNING OF THE SHIFT. PT IS AWAKE AND CONFUSED. SHE IS MOVING ABOUT THE BED ALOT AND KEEPS THE COVERS OFF. WE HAVE TRIED TO KEEP HER TURNED EVERY 2 HRS AND BECAUSE SHE IS INCONT. WE HAVE CHANGED HER ALOT. AT HS WHEN IT WAS TIME FOR HER MEDS WE HAD SOME PROBLEM WITH HER TRYING TO SPIT THEM OUT. ONCE WHEN BEING CLEANED UP SHE BECAME COMBATIVE. AT THE END OF THE SHIFT SHE WAS CLEAN AND DRY. THERE IS YUE FOR HER RED BOTTOM.
[2019-01-21 08:00] VITALS: BP 155/78
[2019-01-21 08:14] LABS: HEPATITIS C ANTIBODY <0.1 S/CO RAT (0.0-0.9)
--- NOTE | 2019-01-21 10:44 | NUR ---
RESTING IN BED. DENIES PAIN. DENIES NEEDS. WILL CONTINUE TO MONITOR.
--- NOTE | 2019-01-21 14:28 | NUR ---
RESTING IN BED. DENIES PAIN. DENIES NEEDS. WILL CONTINUE TO MONITOR.
--- NOTE | 2019-01-21 17:40 | NUR ---
RESTING IN BED. DENIES PAIN, DENIES NEEDS.
[2019-01-21 20:00] VITALS: BP 137/64
[2019-01-22 04:00] VITALS: BP 154/66
[2019-01-22 06:06] LABS: ANION GAP 11.5 mmol/L (8-16); CALCIUM 8.6 mg/dL (8.5-10.1); CARBON DIOXIDE 32.1 mmol/L (21.0-32.0); CREATININE - SERUM 1.1 mg/dL (0.6-1.3); POTASSIUM - SERUM 3.6 mmol/L (3.5-5.1)
[2019-01-22 06:15] LABS: BASOPHILS 0.1 % (0-2); EOSINOPHILS 0 % (0-7); HEMOGLOBIN 13.6 g/dL (12-16); IMMATURE GRANULOCYTES 2.4 % (0-5); LYMPHOCYTES 7.8 % (15-50); MCH 28.1 pg (26.0-34.0); MCHC 33.2 g/dL (31.0-37.0); MCV 84.7 fL (80.0-100.0); MONOCYTES 8.6 % (2-11); NEUTROPHILS 81.1 % (40-80); PLATELET COUNT 435 10x3/uL (130-400); RBC 4.84 10x6/uL (4.00-5.40); RDW 14.6 % (11.5-14.5); WBC 19.3 10x3/uL (4.8-10.8)
--- NOTE | 2019-01-22 07:07 | NUR ---
ASSESSED AT THE BEGINNING OF THE SHIFT. PT IS CONFUSED AND NOT ABLE TO VERBALIZE NEEDS. WE ARE TURNING HER FOR SKIN CARE AND COMFORT, USING YUE BUTT PASTE ON HER BUTTOCKS AT AN AREA OF REDNESS. SHE REMAINS INCONT. OF URINE AND BOWEL SO SHE IS CHECKED AND CLEANED UP WITH LINEN CHANGES FREQUENTLY. HER MEDS WERE GIVEN CRUSHED IN CHOCOLATE PUDDING AND SHE DID WELL. SHE HAS NOT SHOWN ANY SIGNS OF DISCOMFORT UNLESS WE ARE TURNING HER AND THEN IT IS MORE THAT SHE DID NOT WANT TO BE DISTRUBED. SHE IS FRESH AND CLEAN THIS MORNING AFTER A BATH.
[2019-01-22 09:12] VITALS: BP 141/64
[2019-01-22 12:53] VITALS: BP 130/55
--- NOTE | 2019-01-22 15:41 | NUR ---
I have reviewed this patient and I concur with the Shift Assessment completed by the Licensed Practical Nurse today this shift.
[2019-01-22 17:45] VITALS: BP 126/65
--- NOTE | 2019-01-22 19:00 | NUR ---
REPORT RECEIVED AND CARE OF PT ASSUMED. PT LYING IN LOW BACK'S POSITION VISITING WITH DAUGHTER. NO IV. CHANGED BEDPAD DUE TO INCONTINENCE. BED ALARM IN USE. WILL MONITOR FOR NEEDS.
[2019-01-22 20:00] VITALS: BP 137/59
--- NOTE | 2019-01-22 20:31 | NUR ---
HS MEDICATIONS GIVEN CRUSHED AND MIXED WITH CHOCOLATE PUDDING.
--- NOTE | 2019-01-22 21:00 | NUR ---
ASSISTED PT UP TO USE BSC TO VOID. PIVOTS WELL ON RIGHT LEG WITH NO WT BEARING ON LEFT.
--- NOTE | 2019-01-22 21:40 | NUR ---
GAVE HS SNACK: MAREN CRACKERS AND PEANUT BUTTER.
[2019-01-23 04:00] VITALS: BP 92/68
[2019-01-23 05:05] LABS: HEMATOCRIT 41.9 % (36.0-48.0); HEMOGLOBIN 13.7 g/dL (12-16); MCH 28.2 pg (26.0-34.0); MCHC 32.7 g/dL (31.0-37.0); MCV 86.4 fL (80.0-100.0); MEAN PLATELET VOLUME 11.3 fL (7.4-10.4); PLATELET COUNT 375 10x3/uL (130-400); RBC 4.85 10x6/uL (4.00-5.40); RDW 14.7 % (11.5-14.5); WBC 21.7 10x3/uL (4.8-10.8)
[2019-01-23 05:11] LABS: ANION GAP 10.4 mmol/L (8-16); CALCIUM 8.5 mg/dL (8.5-10.1); CARBON DIOXIDE 31.9 mmol/L (21.0-32.0); CREATININE - SERUM 1.2 mg/dL (0.6-1.3); POTASSIUM - SERUM 3.3 mmol/L (3.5-5.1)
[2019-01-23 05:29] LABS: LYMPHOCYTES 5 % (15-50); MONOCYTES 9 % (2-11); NEUTROPHILS 83 % (40-80); PLATELET ESTIMATE NORMAL; TOXIC GRANULATION 1+
--- NOTE | 2019-01-23 06:07 | NUR ---
POTASSIUM LAVEL 3.3 WITH AM LABS. GAVE K DUR 40 MEQ PO CRUSHED WITH PUDDING PER ELECTROLYTE PROTOCOL. ORDER TO RE-CHECK IN 4 HOURS PLACED.
[2019-01-23 09:14] VITALS: BP 109/67
[2019-01-23 12:51] VITALS: BP 137/72
--- NOTE | 2019-01-23 16:03 | NUR ---
I have reviewed this patient and I concur with the Shift Assessment completed by the Licensed Practical Nurse today this shift.
[2019-01-23 16:52] VITALS: BP 145/61
--- NOTE | 2019-01-23 19:00 | NUR ---
REPORT RECEIVED AND CARE OF PT ASSUMED. PT LYING IN SUPINE POSITION WATCHING TV. NO IV SITED. BED ALARM IN USE. WILL MONITOR FOR NEEDS. SIDE RAILS UP X2 FOR SAFETY.
[2019-01-23 20:00] VITALS: BP 143/58
--- NOTE | 2019-01-23 21:03 | NUR ---
HS MEDICATIONS GIVEN CRUSHED IN PUDDING. WILL CONTINUE TO MONITOR FOR NEEDS.
[2019-01-24 04:00] VITALS: BP 138/54
[2019-01-24 06:12] LABS: ANION GAP 12.1 mmol/L (8-16); CALCIUM 8.7 mg/dL (8.5-10.1); CARBON DIOXIDE 31.8 mmol/L (21.0-32.0); CREATININE - SERUM 1.2 mg/dL (0.6-1.3); POTASSIUM - SERUM 3.9 mmol/L (3.5-5.1)
[2019-01-24 06:22] LABS: BASOPHILS 0.1 % (0-2); EOSINOPHILS 0.1 % (0-7); HEMATOCRIT 42.7 % (36.0-48.0); HEMOGLOBIN 13.8 g/dL (12-16); IMMATURE GRANULOCYTES 0.9 % (0-5); LYMPHOCYTES 7.4 % (15-50); MCH 28.2 pg (26.0-34.0); MCHC 32.3 g/dL (31.0-37.0); MCV 87.3 fL (80.0-100.0); MEAN PLATELET VOLUME 11.2 fL (7.4-10.4); MONOCYTES 7.9 % (2-11); NEUTROPHILS 83.6 % (40-80); PLATELET COUNT 350 10x3/uL (130-400); RBC 4.89 10x6/uL (4.00-5.40); WBC 20.6 10x3/uL (4.8-10.8)
--- NOTE | 2019-01-24 07:35 | NUR ---
PT RESTING IN BED, EYES OPEN. PT BEDFAST. TURN Q2 HOURS. REDNESS TO BUTTOCKS. ON ELECTROLTYE PROTOCOL. ON 2L O2, NC. NO IV. NO C/O PAIN. NO S/S OF ACUTE DISTRESS NOTED. MEDS CRUSHED IN PUDDING. PT DENIES ANYTHING FURTHER AT THIS TIME. CALL LIGHT IN REACH. WILL CONTINUE TO MONITOR.
[2019-01-24 09:06] VITALS: BP 139/52
--- NOTE | 2019-01-24 09:28 | MORECARE ---
CASE MANAGEMENT DISCHARGE SUMMARY PATIENT: ROSIE DUFFY UNIT: [id number] ADM DATE: 01/13/19 AGE: 88 : [birth year] SEX: F ROOM/BED: D.2231 AUTHOR: JAMES TOWNSEND PHYSICIAN: REFERRING PHYSICIAN: VIRAJ TRUJILLO MD DATE OF SERVICE: 01/24/19 Discharge Plan Patient Name: ROSIE DUFFY Facility: [facility]:[place] : 1930 Planned Disposition: Home Anticipated Discharge Date: 01/18/19 Discharge Date: Expected LOS: 5 Initial Reviewer: [email or web address] Initial Review Date: 01/17/2019 Generated: 01/24/19 10:28 am Comments DCP- Discharge Planning Updated by [email or web address]: Criss Echols on 01/24/19 8:[address] Updated clinical faxed to Kandy العراقي with [facility]. CM will continue to follow and assist with discharge planning/needs. DCP- Discharge Planning Updated by [email or web address]: Criss Echols on 01/20/19 12:[address] Spoke with patient's daughter on the phone and she would like a referral sent to [facility] for SNF. I spoke with masha Ledezma for [facility], and clinical faxed. CM will continue to follow and assist with discharge planning/needs. DCP- Discharge Planning Updated by [email or web address]: Christopher Diaz on 01/17/19 3:[address] Patient Name: ROSIE DUFFY Admission Status: ER Accout number: [id number] Admission Date: 01-13-2019 : 1930 Admission Diagnosis:WEAKNESS Attending: VIRAJ TRUJILLO Current LOS: 4 Anticipated DC Date: 01-18-2019 Planned Disposition: Home Primary Insurance: MEDICARE A & B Discharge Planning Comments: CM MET WITH PT IN ROOM TO DISCUSS DISCHARGE PLANNING AND NEEDS. PT ORIENTED TO SELF ONLY, WAS NOT ABLE TO SIGNIFICANTLY PARTICIPATE IN ASSESSMENT. CM LOCATED PT'S SPOUSE IN HOSPITAL ROOM 2237 WHERE HE IS ALSO A PATIENT. PT'S SPOUSE REPORTS LIVING AT HOME WITH PT; PT ALSO HAS ADULT FAMILY MEMBERS IN THE HOME ASSISTING WITH HER CARE DAILY. PT DOES REQUIRE ASSISTANCE WITH MEDICATION MANAGEMENT. PT HAS A CANE THAT SHE DOES NOT USE AND NO MEDICAL EQUIPMENT PROVIDER PREFERENCE. PT HAS NO OUTSIDE SERVICES ASSISTING IN THE HOME. CM DISCUSSED AVAILABILITY OF HOME HEALTH, REHAB SERVICES AND MEDICAL EQUIPMENT. PT'S SPOUSE DENIES DISCHARGE NEEDS, REPORTS PT'S DAUGHTER IN LAW, LELA, WILL PICK HER UP FOR DISCHARGE HOME. IMPORTANT MESSAGE FROM MEDICARE PROVIDED AND EXPLAINED. PT'S SPOUSE REPORTS PT LIVES AT HOME AND HAS FAMILY ASSISTANCE FOR SUPERVISION AND CARE NEEDED. PT'S SPOUSE DOES NOT ANTICIPATE ANY DISCHARGE NEEDS. CM TO FOLLOW AND ASSIST IF NEEDED. Ice Cream Dipper: Christopher Diaz DCPIA - Discharge Planning Initial Assessment Updated by [email or web address]: Christopher Diaz on 01/17/19 4:54 pm * Is the patient Alert and Oriented? Yes * How many steps to enter\exit or inside your home? NONE * PCP DR. TRUJILLO * Pharmacy [facility] * Preadmission Environment Home with Family * ADLs Partial Dependent * Partial ADLs (Assistance needed) Medication Management * Equipment Cane * Other Equipment NO MEDICAL EQUIPMENT PROVIDER PREFERENCE * List name and contact numbers for known caregivers / representatives who currently or will assist patient after discharge: KINGA ADAMSJAYLYNJOSIE, SPOUSE, LELA CM, DTR IN [place], [place] [phone] * Verbal permission to speak to the caregivers and representatives has been obtained from the patient. Yes * Community resources currently utilized None * Please name any agencies selected above. NONE * Additional services required to return to the preadmission environment? No * Can the patient safely return to the preadmission environment? Yes * Has this patient been hospitalized within the prior 30 days at any hospital? No Coverage Notice Reviewer: [id number] - Christopher Diaz Notice Issued Date-Time: 01/17/2019 14:45 Notice Type: IM Discharge Notice Notice Delivered To: Patient Relationship to Patient: Drug And Alcohol Treatment Specialist Name: Delivery Method: HAND - Hand Delivered Eufemia Days: Prior Verbal Notification: Recipient Understood Notice: Recipient Signature: Yes Med Rec Note Co-signed by Attending: Coverage Notice Comment: Reviewer: [id number] - Criss Echols Notice Issued Date-Time: 01/20/2019 13:22 Notice Type: Patient Choice Letter Notice Delivered To: Family Member Relationship to Patient: Daughter Drug And Alcohol Treatment Specialist Name: Savanna Cm Delivery Method: PHONE - Phone Eufemia Days: Prior Verbal Notification: Recipient Understood Notice: Yes Recipient Signature: Med Rec Note Co-signed by Attending: Coverage Notice Comment: [facility]ICE for [facility] Last DP export: 01/20/19 12:27 p Patient Name: ROSIE DUFFY Page [id number] at 0928 All edits/amendments must be made on the electronic document DICTATION DATE: 01/24/19926 VOLTMETER OPERATOR: DONNA 01/24/19926 RPT#: [id number] DC DATE: STATUS: ADM IN [facility] [address] [place] [address] END OF REPORT
[2019-01-24 13:44] VITALS: BP 127/49
--- NOTE | 2019-01-24 14:52 | NUR ---
NUTRITION F/U PT SLEEPING. POOR PO INTAKE RECENT MEALS. WILL CONTINUE TO PROVIDE DIET, WILL ENCOURAGE PO INTAKE. RD FOLLOWING
[2019-01-24 17:13] VITALS: BP 128/48
--- NOTE | 2019-01-24 18:22 | NUR ---
I have reviewed this patient and I concur with the Shift Assessment completed by the Licensed Practical Nurse today this shift.
[2019-01-24 20:00] VITALS: BP 135/78
[2019-01-25 04:00] VITALS: BP 127/54
[2019-01-25 05:54] LABS: BASOPHILS 0.1 % (0-2); EOSINOPHILS 0.2 % (0-7); HEMATOCRIT 43.2 % (36.0-48.0); IMMATURE GRANULOCYTES 0.7 % (0-5); LYMPHOCYTES 6.1 % (15-50); MCH 28.4 pg (26.0-34.0); MCHC 32.4 g/dL (31.0-37.0); MCV 87.6 fL (80.0-100.0); MEAN PLATELET VOLUME 11.7 fL (7.4-10.4); MONOCYTES 6.7 % (2-11); NEUTROPHILS 86.2 % (40-80); PLATELET COUNT 286 10x3/uL (130-400); RBC 4.93 10x6/uL (4.00-5.40); RDW 15.2 % (11.5-14.5); WBC 16.4 10x3/uL (4.8-10.8)
[2019-01-25 06:19] LABS: CALCIUM 8.3 mg/dL (8.5-10.1); CARBON DIOXIDE 32.5 mmol/L (21.0-32.0); CREATININE - SERUM 1.2 mg/dL (0.6-1.3); POTASSIUM - SERUM 3.5 mmol/L (3.5-5.1)
--- NOTE | 2019-01-25 07:45 | NUR ---
PT WILL NOT KEEP 02 CANNULA IN NOSE, KEEPS PULLING IT OUT. O2 SATURATION 89-90%
--- NOTE | 2019-01-25 08:04 | NUR ---
PT CONFUSED. BREATH SOUNDS CLEAR BILAT, 2L O2 PER NC. IV TO LEFT AC, PATENT, DRESSING CDI. PT REPORTING NO PAIN AND SMILING. +1 EDEMA TO BLE. BRUISING TO BUE. BED LOW, CALL LIGHT IN REACH. NO OTHER NEEDS AT THIS TIME.
[2019-01-25 09:25] VITALS: BP 117/51
[2019-01-25 13:10] VITALS: BP 116/52
[2019-01-25 17:30] VITALS: BP 117/56
--- NOTE | 2019-01-25 18:08 | NUR ---
I have reviewed this patient and I concur with the Shift Assessment completed by the Licensed Practical Nurse today this shift.
[2019-01-25 20:00] VITALS: BP 116/63
[2019-01-26] VITALS (11 sets, daily range): BP systolic 65–128; BP diastolic 41–62
[2019-01-26 06:45] LABS: PROTEIN - SERUM 6.3 g/dL (6.4-8.2)
[2019-01-26 06:49] LABS: APTT 27.9 SECONDS (22.8-39.4)
[2019-01-26 06:50] LABS: INR 1.29 (0.85-1.17); PROTIME 15.6 SECONDS (11.6-15.0)
--- NOTE | 2019-01-26 07:25 | NUR ---
PT RESTING IN BED, EYES CLOSED. AROUSES TO VOICE. PLEASANTLY CONFUSED. PT DNR. ON ELECTROLYTE PROTOCOL. INCONTINENT OF B&B. REDNESS TO BOTH BUTTOCKS. ALLEN ALARM ON AND WORKING. ON 2L O2, NC. IV TO LEFT FOREARM, D5W INFUSING @ 50ML/HR. MEDS CRUSHED WITH PUDDING. PT DENIES ANYTHING FURTHER AT THIS TIME. CALL LIGHT IN REACH. WILL CONTINUE TO MONITOR.
[2019-01-26 08:15] LABS: HEMATOCRIT 40.6 % (36.0-48.0); HEMOGLOBIN 13.2 g/dL (12-16); MCH 28.4 pg (26.0-34.0); MCHC 32.5 g/dL (31.0-37.0); MCV 87.3 fL (80.0-100.0); MEAN PLATELET VOLUME 12.3 fL (7.4-10.4); PLATELET COUNT 271 10x3/uL (130-400); RBC 4.65 10x6/uL (4.00-5.40); RDW 15.4 % (11.5-14.5); WBC 16.6 10x3/uL (4.8-10.8)
[2019-01-26 08:22] LABS: ANION GAP 12.1 mmol/L (8-16); CALCIUM 8.4 mg/dL (8.5-10.1); CREATININE - SERUM 1.2 mg/dL (0.6-1.3); POTASSIUM - SERUM 3.1 mmol/L (3.5-5.1)
[2019-01-26 09:00] LABS: LYMPHOCYTES 12 % (15-50); MONOCYTES 14 % (2-11); NEUTROPHILS 73 % (40-80); PLATELET ESTIMATE NORMAL
[2019-01-26 09:01] LABS: ROULEAUX OCC
--- NOTE | 2019-01-26 16:33 | NUR ---
PT BP AND O2 SAT LOW, RECHECKED MANUALLY. BP 120/62 P 65 R 18 O2 89% ON 2L. DR. GONZALES IN PT ROOM, TURNED O2 UP TO 6L. O2 SAT 94% ON 6L. NO S/S OF ACUTE DISTRESS NOTED. CALL LIGHT IN REACH. WILL CONTINUE TO MONITOR.
[2019-01-26 17:47] LABS: MACROPHAGES BF 5 %; NEUT - BF 39 %
--- NOTE | 2019-01-26 18:52 | NUR ---
PT RESTING IN BED, EYES OPEN. NO C/O PAIN. NO S/S OF ACUTE DISTRESS NOTED. CALL LIGHT IN REACH. PT DENIES ANYTHING FURTHER AT THIS TIME. WILL CONTINUE TO MONITOR.
--- NOTE | 2019-01-26 23:52 | NUR ---
REC'D ARACELI OF SHIFT IN BED FAMILY AT BEDSIDE EATING [place] CITIZ[place] FOOD.NO NEW COMPLAINTS AT PRESENT TIME.WILL CONTINUE TO MONITOR FOR ANY CHGES AND FOLLOW CURRENT PLAN OF CARE.
[2019-01-27] VITALS: BP 122/47
--- NOTE | 2019-01-27 03:54 | NUR ---
I have reviewed this patient and I concur with the Shift Assessment completed by the Licensed Practical Nurse today this shift.
[2019-01-27 04:00] VITALS: BP 115/67
[2019-01-27 05:13] LABS: BASOPHILS 0.1 % (0-2); EOSINOPHILS 0.2 % (0-7); HEMATOCRIT 38.8 % (36.0-48.0); HEMOGLOBIN 12.9 g/dL (12-16); IMMATURE GRANULOCYTES 0.5 % (0-5); LYMPHOCYTES 9.2 % (15-50); MCH 28.6 pg (26.0-34.0); MCHC 33.2 g/dL (31.0-37.0); MEAN PLATELET VOLUME 11.3 fL (7.4-10.4); MONOCYTES 8.7 % (2-11); NEUTROPHILS 81.3 % (40-80); PLATELET COUNT 235 10x3/uL (130-400); RBC 4.51 10x6/uL (4.00-5.40); RDW 15.2 % (11.5-14.5); WBC 14.3 10x3/uL (4.8-10.8)
[2019-01-27 05:28] LABS: ANION GAP 8.2 mmol/L (8-16); CALCIUM 8.1 mg/dL (8.5-10.1); CARBON DIOXIDE 32.7 mmol/L (21.0-32.0); CREATININE - SERUM 1.1 mg/dL (0.6-1.3)
[2019-01-27 05:47] LABS: POTASSIUM - SERUM 2.9 mmol/L (3.5-5.1)
[2019-01-27 09:09] VITALS: BP 115/46
[2019-01-27 13:28] VITALS: BP 102/36
--- NOTE | 2019-01-27 14:49 | NUR ---
Nutrition Follow Up: Pt was asleep at the time of RD visit. Interview deferred at this time. Pt is NPO at this time; was eating 25% meal avg on a regular diet prior to this. BM: 01/26/19 Labs reviewed Meds noted including Lasix Rec resuming regular diet when medically feasible. Rec consider an appetite stimulant. RD following.
--- NOTE | 2019-01-27 16:03 | NUR ---
PT RESTING IN BED. NO SIGNS OF DISTRESS. IV TO LEFT FORARM PATENT NO REDNESS OR TENDERNESS. ALL FALL PRECAUTIONS IN PLACE. DENIES ANY FUTHER NEED AT THIS TIME. CALL LIGHT IN REACH. BED LOW POSITION. NO FAMILY AT BEDSIDE AT THIS TIME.
[2019-01-27 16:17] VITALS: BP 111/72
--- NOTE | 2019-01-27 19:40 | NUR ---
PT LYING IN BED RESTING, ORIENTED TO SELF ONLY. DENIES NEEDS. O2 3L/NC. IV LEFT FA INFUSING D5W @ 50. FALL PRECAUTIONS IN PLACE. CONT O2 MONITOR IN PLACE. ALLEN ON. CL IN REACH, WILL CTM
[2019-01-27 20:06] LABS: ACID FAST SMEAR Negative (()); AFB SPECIMEN PROCESSING Not Indicated (())
[2019-01-27 20:38] VITALS: BP 109/36
--- NOTE | 2019-01-28 01:15 | NUR ---
PT INCONTINENT OF BLADDER, PROVIDED MARISABEL CARE AND CHANGED LINEN. ALLEN ON, BED LOWEST POSITION, SRX2. WILL CTM
[2019-01-28 01:22] VITALS: BP 105/38
[2019-01-28 05:40] VITALS: BP 121/73
--- NOTE | 2019-01-28 06:30 | NUR ---
PT INCONTINENT OF BLADDER, PROVIDED MARISABEL CARE AND CHANGED LINEN
[2019-01-28 08:50] VITALS: BP 128/49
[2019-01-28 11:14] LABS: FUNGUS STAIN Final report (())
[2019-01-28 12:57] VITALS: BP 109/47
[2019-01-28 16:58] VITALS: BP 140/50
[2019-01-28 20:22] VITALS: BP 103/82
--- NOTE | 2019-01-28 20:45 | NUR ---
INSTRUCTED PT FALL PRECAUTION. USE CALL LIGHT FOR HELP. PT VERBAL UNDERSTAND THE TEACHING.
--- NOTE | 2019-01-29 00:52 | NUR ---
PT REST QUIETLY IN BED. EYE CLOSE. BED LOW.
[2019-01-29 05:19] LABS: BASOPHILS 0 % (0-2); EOSINOPHILS 0.2 % (0-7); HEMATOCRIT 38.5 % (36.0-48.0); HEMOGLOBIN 12.6 g/dL (12-16); IMMATURE GRANULOCYTES 0.3 % (0-5); LYMPHOCYTES 8.1 % (15-50); MCH 27.9 pg (26.0-34.0); MCHC 32.7 g/dL (31.0-37.0); MCV 85.4 fL (80.0-100.0); MEAN PLATELET VOLUME 11.6 fL (7.4-10.4); MONOCYTES 9.2 % (2-11); NEUTROPHILS 82.2 % (40-80); PLATELET COUNT 249 10x3/uL (130-400); RBC 4.51 10x6/uL (4.00-5.40); RDW 14.9 % (11.5-14.5); WBC 14.1 10x3/uL (4.8-10.8)
[2019-01-29 05:26] VITALS: BP 110/73
[2019-01-29 05:38] LABS: ANION GAP 8.7 mmol/L (8-16); CALCIUM 8.3 mg/dL (8.5-10.1); CARBON DIOXIDE 29.7 mmol/L (21.0-32.0); CREATININE - SERUM 0.9 mg/dL (0.6-1.3); MAGNESIUM - SERUM 1.9 mg/dL (1.8-2.4); PHOSPHOROUS 2.3 mg/dL (2.5-4.9); POTASSIUM - SERUM 3.4 mmol/L (3.5-5.1)
--- NOTE | 2019-01-29 06:42 | NUR ---
I have reviewed this patient and I concur with the Shift Assessment completed by the Licensed Practical Nurse today this shift.
[2019-01-29 08:42] VITALS: BP 138/59
--- NOTE | 2019-01-29 09:00 | NUR ---
AWAKE AND PLEASANTLY CONFUSION NOTED O2 2L N/C. MEDICATIONS CRUSHED AND PUT IN PUDDING AND TOLERATED WELL. OVF INFUSING AT PRESCRIBED RATE. FALL PRECAUTIONS IN PLACE. PT. UP IN CHAIR WITH THERAPY ASSIST AND TOLERATING WELL.
[2019-01-29 12:37] VITALS: BP 108/48
[2019-01-29 18:21] VITALS: BP 116/54
--- NOTE | 2019-01-29 19:35 | NUR ---
LYING IN BED. ALERT AND ORIENTED TO SELF ONLY. CONFUSED. DIFF FOLLOWING COMMANDS. ALLEN ALARM IN USE FOR PT SAFETY. RESP EVEN AND NONLABORED. O2 @ 3.5L/NC. INCONT OF B/B. REDNESS NOTED TO BUTTOCKS. EDEMA NOTED TO RLE. BRUISES NOTED TO BUE AND BLE. IV INFUSING IN LT FOREARM WITHOUT DIFF. SR ELEVATED X3. CL IN REACH. NO ACUTE DISTRESS.
[2019-01-29 21:43] VITALS: BP 137/45
[2019-01-30 00:56] VITALS: BP 124/66
--- NOTE | 2019-01-30 01:43 | NUR ---
HAS SLEPT WELL SO FAR THIS SHIFT. NO DISTRESS. ALLEN ALARM ON. CL IN REACH.
--- NOTE | 2019-01-30 03:21 | NUR ---
INCONT OF URINE. PERICARE PERFORMED. BUTT PASTE APPLIED. ALLEN ALARM ON. NO DISTRESS. CL IN REACH.
[2019-01-30 04:00] VITALS: BP 148/52
--- NOTE | 2019-01-30 06:10 | NUR ---
INCONT OF URINE. PERICARE PERFORMED. REPOSITIONED FOR COMFORT. ALLEN ALARM ON. CL IN REACH.
[2019-01-30 06:38] LABS: BASOPHILS 0.1 % (0-2); EOSINOPHILS 0.3 % (0-7); HEMATOCRIT 38.1 % (36.0-48.0); HEMOGLOBIN 12.6 g/dL (12-16); IMMATURE GRANULOCYTES 0.4 % (0-5); LYMPHOCYTES 8.2 % (15-50); MCH 28.3 pg (26.0-34.0); MCHC 33.1 g/dL (31.0-37.0); MCV 85.6 fL (80.0-100.0); MEAN PLATELET VOLUME 11.7 fL (7.4-10.4); PLATELET COUNT 284 10x3/uL (130-400); RBC 4.45 10x6/uL (4.00-5.40); WBC 12.1 10x3/uL (4.8-10.8)
[2019-01-30 06:51] LABS: ANION GAP 10.2 mmol/L (8-16); CALCIUM 8.2 mg/dL (8.5-10.1); CARBON DIOXIDE 30.6 mmol/L (21.0-32.0); POTASSIUM - SERUM 3.8 mmol/L (3.5-5.1)
--- NOTE | 2019-01-30 09:00 | NUR ---
PT. SITTING UP IN BED AWAKE AND PLEASANTLY CONFUSED. IV TO LT. F/A W/O ANY S/S OF INFOECTION OR INFILTRATION.O23L N/C. BREATH SOUNDS CTA. WITH ABDOMEN DISTENDED WITH BS NOTED. FALL PRECAUTIONS IN PLACE. SCD IN PLACE.
[2019-01-30 09:25] VITALS: BP 148/62
[2019-01-30 12:32] VITALS: BP 140/54
[2019-01-30 17:39] VITALS: BP 126/86
--- NOTE | 2019-01-30 19:40 | NUR ---
LYING IN BED. ALERT AND ORIENTED X1, SELF ONLY. CONFUSED. RESP EVEN AND NONLABORED. HAS PULLED O2 OFF O2 PLACED ON PT @ 3.5L/NC. NO DISTRESS. BRUISES NOTED TO BUE AND BLE. EDEMA NOTED TO BLE. PEDAL PULSE WNL TO RLE, BUT WEAK IN LLE WITH MOTTLING NOTED TO BILAT FEET AND FEET ARE COLD TO TOUCH. SCDS IN USE BILAT. D5 1/2 NS WITH 20 MEQ KCL INFUSING AT 30 MLHR IN LT FOREARM WITHOUT DIFF. ALLEN ALARM IN USE FOR PT SAFETY. SR ELEVATED X2. CL IN REACH.
[2019-01-30 20:59] VITALS: BP 136/46
--- NOTE | 2019-01-31 01:18 | NUR ---
AWAKE. HAS PULLED O2 OFF AGAIN AND PLACED BACK ON PT. SMILES AND IS CONFUSED. CALM. RESP EVEN AND NONLABORED. INCONT OF URINE. PERICARE PERFORMED. SR ELEVATED X2. CL IN REACH. ALLEN ALARM IN USE.
[2019-01-31 02:08] VITALS: BP 130/47
--- NOTE | 2019-01-31 04:11 | NUR ---
INCONT OF BLADDER. PERICARE PERFORMED. RESP EVEN AND NONLABORED. O2 @ 3.5L/NC. REPOSITIONED FOR COMFORT. ALLEN ALARM IN USE. CL IN REACH.
[2019-01-31 05:53] VITALS: BP 135/70
[2019-01-31 06:43] LABS: BASOPHILS 0.2 % (0-2); EOSINOPHILS 0.4 % (0-7); HEMATOCRIT 39.2 % (36.0-48.0); HEMOGLOBIN 12.8 g/dL (12-16); IMMATURE GRANULOCYTES 0.4 % (0-5); LYMPHOCYTES 9.1 % (15-50); MCH 28.4 pg (26.0-34.0); MCHC 32.7 g/dL (31.0-37.0); MCV 87.1 fL (80.0-100.0); MEAN PLATELET VOLUME 11.7 fL (7.4-10.4); MONOCYTES 12.2 % (2-11); NEUTROPHILS 77.7 % (40-80); PLATELET COUNT 287 10x3/uL (130-400); RDW 15.3 % (11.5-14.5); WBC 9.9 10x3/uL (4.8-10.8)
[2019-01-31 07:11] LABS: ANION GAP 11.7 mmol/L (8-16); CALCIUM 8.1 mg/dL (8.5-10.1); CARBON DIOXIDE 27.5 mmol/L (21.0-32.0); CREATININE - SERUM 0.9 mg/dL (0.6-1.3); POTASSIUM - SERUM 4.2 mmol/L (3.5-5.1)
[2019-01-31 09:00] VITALS: BP 136/64
--- NOTE | 2019-01-31 09:29 | MORECARE ---
CASE MANAGEMENT DISCHARGE SUMMARY PATIENT: ROSIE DUFFY UNIT: [id number] ADM DATE: 01/13/19 AGE: 88 : [birth year] SEX: F ROOM/BED: D.2231 AUTHOR: JAMES TOWNSEDN PHYSICIAN: REFERRING PHYSICIAN: VIRAJ TRUJILLO MD DATE OF SERVICE: 01/31/19 Discharge Plan Patient Name: ROSIE DUFFY Facility: [facility]:[place] : 1930 Planned Disposition: Home Anticipated Discharge Date: 01/18/19 Discharge Date: Expected LOS: 5 Initial Reviewer: [email or web address] Initial Review Date: 01/17/2019 Generated: 01/31/19 10:29 am Comments DCP- Discharge Planning Updated by [id number]: Criss Echols on 01/31/19 8:[address] Updated clinical faxed to masha Ledezma for [facility]. CM will continue to follow and assist with discharge planning/needs. DCP- Discharge Planning Updated by [email or web address]: Criss Echols on 01/24/19 8:[address] Updated clinical faxed to Kandy العراقي with [facility]. CM will continue to follow and assist with discharge planning/needs. DCP- Discharge Planning Updated by [email or web address]: Criss Echols on 01/20/19 12:[address] Spoke with patient's daughter on the phone and she would like a referral sent to [facility] for SNF. I spoke with masha Ledezma for [facility], and clinical faxed. CM will continue to follow and assist with discharge planning/needs. DCP- Discharge Planning Updated by [id number]: Christopher Daiz on 01/17/19 3:[address] Patient Name: ROSIE DUFFY Admission Status: ER Accout number: [id number] Admission Date: 01-13-2019 : 1930 Admission Diagnosis:WEAKNESS Attending: VIRAJ TRUJILLO Current LOS: 4 Anticipated DC Date: 01-18-2019 Planned Disposition: Home Primary Insurance: MEDICARE A & B Discharge Planning Comments: CM MET WITH PT IN ROOM TO DISCUSS DISCHARGE PLANNING AND NEEDS. PT ORIENTED TO SELF ONLY, WAS NOT ABLE TO SIGNIFICANTLY PARTICIPATE IN ASSESSMENT. CM LOCATED PT'S SPOUSE IN HOSPITAL ROOM 2237 WHERE HE IS ALSO A PATIENT. PT'S SPOUSE REPORTS LIVING AT HOME WITH PT; PT ALSO HAS ADULT FAMILY MEMBERS IN THE HOME ASSISTING WITH HER CARE DAILY. PT DOES REQUIRE ASSISTANCE WITH MEDICATION MANAGEMENT. PT HAS A CANE THAT SHE DOES NOT USE AND NO MEDICAL EQUIPMENT PROVIDER PREFERENCE. PT HAS NO OUTSIDE SERVICES ASSISTING IN THE HOME. CM DISCUSSED AVAILABILITY OF HOME HEALTH, REHAB SERVICES AND MEDICAL EQUIPMENT. PT'S SPOUSE DENIES DISCHARGE NEEDS, REPORTS PT'S DAUGHTER IN LAW, LELA, WILL PICK HER UP FOR DISCHARGE HOME. IMPORTANT MESSAGE FROM MEDICARE PROVIDED AND EXPLAINED. PT'S SPOUSE REPORTS PT LIVES AT HOME AND HAS FAMILY ASSISTANCE FOR SUPERVISION AND CARE NEEDED. PT'S SPOUSE DOES NOT ANTICIPATE ANY DISCHARGE NEEDS. CM TO FOLLOW AND ASSIST IF NEEDED. Art Glass Designer: Christopher Diaz DCPIA - Discharge Planning Initial Assessment Updated by [id number]: Christopher Diaz on 01/17/19 4:54 pm * Is the patient Alert and Oriented? Yes * How many steps to enter\exit or inside your home? NONE * PCP DR. TRUJILLO * Pharmacy [facility] * Preadmission Environment Home with Family * ADLs Partial Dependent * Partial ADLs (Assistance needed) Medication Management * Equipment Cane * Other Equipment NO MEDICAL EQUIPMENT PROVIDER PREFERENCE * List name and contact numbers for known caregivers / representatives who currently or will assist patient after discharge: KINGA DUFFY, SPOUSE, LELA CM, DTR IN [place], [place] [phone] * Verbal permission to speak to the caregivers and representatives has been obtained from the patient. Yes * Community resources currently utilized None * Please name any agencies selected above. NONE * Additional services required to return to the preadmission environment? No * Can the patient safely return to the preadmission environment? Yes * Has this patient been hospitalized within the prior 30 days at any hospital? No Coverage Notice Reviewer: [id number] - Christopher Diaz Notice Issued Date-Time: 01/17/2019 14:45 Notice Type: IM Discharge Notice Notice Delivered To: Patient Relationship to Patient: Proposal Analyst Name: Delivery Method: HAND - Hand Delivered Eufemia Days: Prior Verbal Notification: Recipient Understood Notice: Recipient Signature: Yes Med Rec Note Co-signed by Attending: Coverage Notice Comment: Reviewer: [id number] - Criss Echols Notice Issued Date-Time: 01/20/2019 13:22 Notice Type: Patient Choice Letter Notice Delivered To: Family Member Relationship to Patient: Daughter Proposal Analyst Name: Savanna Cm Delivery Method: PHONE - Phone Eufemia Days: Prior Verbal Notification: Recipient Understood Notice: Yes Recipient Signature: Med Rec Note Co-signed by Attending: Coverage Notice Comment: ALICE for [facility] detention Last DP export: 01/24/19 8:28 a Patient Name: ROSIE DUFFY Page [phone] at 0929 All edits/amendments must be made on the electronic document DICTATION DATE: 01/31/19927 NURSE MONITORING: DONNA 01/31/19927 RPT#: [id number] DC DATE: STATUS: ADM IN [facility] [address] [place] [address] END OF REPORT
[2019-01-31 13:45] VITALS: BP 158/59
[2019-01-31 16:43] VITALS: BP 129/66
--- NOTE | 2019-01-31 18:49 | NUR ---
I have reviewed this patient and I concur with the Shift Assessment completed by the Licensed Practical Nurse today this shift.
--- NOTE | 2019-01-31 19:30 | NUR ---
AWAKE AND EATING A MEAL PT HAS COVERS ROLLED INTO A BALL ANSWERS TO NAME BUT OTHERWISE NOT OREINTATED IV IS PATENT TO LEFT FA RUNNING D5 1/2 WITH 20 MEQ OF K+ BED IS LOW AND LOCKED CALL LIGHT IS WITH IN REACH LUNGS ARE DEMINISHED SKIN WARM AND DRY
[2019-01-31 20:00] VITALS: BP 145/51
[2019-02-01] VITALS: BP 170/85
--- NOTE | 2019-02-01 00:49 | NUR ---
I have reviewed this patient and I concur with the Shift Assessment completed by the Licensed Practical Nurse today this shift.
[2019-02-01 04:00] VITALS: BP 140/52
[2019-02-01 05:45] LABS: BASOPHILS 0.2 % (0-2); EOSINOPHILS 0.4 % (0-7); HEMATOCRIT 38.9 % (36.0-48.0); IMMATURE GRANULOCYTES 0.4 % (0-5); LYMPHOCYTES 8.6 % (15-50); MCH 28.5 pg (26.0-34.0); MCHC 33.4 g/dL (31.0-37.0); MCV 85.3 fL (80.0-100.0); MEAN PLATELET VOLUME 11.8 fL (7.4-10.4); MONOCYTES 8.8 % (2-11); NEUTROPHILS 81.6 % (40-80); RBC 4.56 10x6/uL (4.00-5.40); RDW 15.1 % (11.5-14.5); WBC 10.5 10x3/uL (4.8-10.8)
[2019-02-01 05:59] LABS: PLATELET COUNT 376 10x3/uL (130-400)
[2019-02-01 06:13] LABS: ANION GAP 13.3 mmol/L (8-16); CALCIUM 8.6 mg/dL (8.5-10.1); CARBON DIOXIDE 27.5 mmol/L (21.0-32.0); CREATININE - SERUM 0.9 mg/dL (0.6-1.3); POTASSIUM - SERUM 3.8 mmol/L (3.5-5.1)
[2019-02-01 09:00] VITALS: BP 147/57; BP 157/93
--- NOTE | 2019-02-01 10:05 | NUR ---
PT RESTING IN BED EYES CLOSED, AROUSES TO VOICE. PLEASANTLY CONFUSED. UP WITH ASSIST. INCONINENT OF B&B. AWAITING PLACEMENT AT [facility]. IV TO LEFT FOREARM, D5 1/2 NS INFUSING @ 30ML/HR. SITE PATENT WITHOUT REDNESS OR SWELLING. HEP C+. PT DENIES ANYTHING FURTHER AT THIS TIME. CALL LIGHT IN REACH. FALL PRECAUTIONS IN PLACE. WILL CONTINUE TO MONITOR.
[2019-02-01 12:00] VITALS: BP 98/59
--- NOTE | 2019-02-01 14:24 | MORECARE ---
CASE MANAGEMENT DISCHARGE SUMMARY PATIENT: ROSIE DUFFY UNIT: [id number] ADM DATE: 01/13/19 AGE: 88 : [birth year] SEX: F ROOM/BED: D.2231 AUTHOR: KRISTIAN,DOC PHYSICIAN: REFERRING PHYSICIAN: VIRAJ TRUJILLO MD DATE OF SERVICE: 02/01/19 Discharge Plan Patient Name: ROSIE DUFFY Facility: [facility]:[place] : 1930 Planned Disposition: Home Anticipated Discharge Date: 01/18/19 Discharge Date: Expected LOS: 5 Initial Reviewer: [email or web address] Initial Review Date: 01/17/2019 Generated: 02/01/19 3:24 pm Comments DCP- Discharge Planning Updated by [email or web address]: Criss Echols on 02/01/19 1:[address] Received order for discharge. I called Kalina at [facility], she will be going to The [address] DC order, MAR and DC Summary faxed to [facility]. She will need ambulance transfer. I informed Kalina she was on 3L NC and was a bed mobility max assist. I called patient's daughter, Savanna, and she is in agreement to discharge today to [facility]. She is going to a skilled bed. DCP- Discharge Planning Updated by [email or web address]: Criss Echols on 01/31/19 8:[address] Updated clinical faxed to masha Ledezma for [facility]. CM will continue to follow and assist with discharge planning/needs. DCP- Discharge Planning Updated by [email or web address]: Criss Echols on 01/24/19 8:[address] Updated clinical faxed to Kandy العراقي with [facility]. CM will continue to follow and assist with discharge planning/needs. DCP- Discharge Planning Updated by [email or web address]: Criss Echols on 01/20/19 12:[address] Spoke with patient's daughter on the phone and she would like a referral sent to [facility] for SNF. I spoke with masha Ledezma for the [facility], and clinical faxed. CM will continue to follow and assist with discharge planning/needs. DCP- Discharge Planning Updated by [email or web address]: Christopher Diaz on 01/17/19 3:[address] Patient Name: ROSIE DUFFY Admission Status: ER Accout number: [id number] Admission Date: 01-13-2019 : 1930 Admission Diagnosis:WEAKNESS Attending: VIRAJ TRUJILLO Current LOS: 4 Anticipated DC Date: 01-18-2019 Planned Disposition: Home Primary Insurance: MEDICARE A & B Discharge Planning Comments: CM MET WITH PT IN ROOM TO DISCUSS DISCHARGE PLANNING AND NEEDS. PT ORIENTED TO SELF ONLY, WAS NOT ABLE TO SIGNIFICANTLY PARTICIPATE IN ASSESSMENT. CM LOCATED PT'S SPOUSE IN HOSPITAL ROOM 2237 WHERE HE IS ALSO A PATIENT. PT'S SPOUSE REPORTS LIVING AT HOME WITH PT; PT ALSO HAS ADULT FAMILY MEMBERS IN THE HOME ASSISTING WITH HER CARE DAILY. PT DOES REQUIRE ASSISTANCE WITH MEDICATION MANAGEMENT. PT HAS A CANE THAT SHE DOES NOT USE AND NO MEDICAL EQUIPMENT PROVIDER PREFERENCE. PT HAS NO OUTSIDE SERVICES ASSISTING IN THE HOME. CM DISCUSSED AVAILABILITY OF HOME HEALTH, REHAB SERVICES AND MEDICAL EQUIPMENT. PT'S SPOUSE DENIES DISCHARGE NEEDS, REPORTS PT'S DAUGHTER IN LAW, LELA, WILL PICK HER UP FOR DISCHARGE HOME. IMPORTANT MESSAGE FROM MEDICARE PROVIDED AND EXPLAINED. PT'S SPOUSE REPORTS PT LIVES AT HOME AND HAS FAMILY ASSISTANCE FOR SUPERVISION AND CARE NEEDED. PT'S SPOUSE DOES NOT ANTICIPATE ANY DISCHARGE NEEDS. CM TO FOLLOW AND ASSIST IF NEEDED. Front Desk Worker: Christopher Diaz DCPIA - Discharge Planning Initial Assessment Updated by [email or web address]: Christopher Diaz on 01/17/19 4:54 pm * Is the patient Alert and Oriented? Yes * How many steps to enter\exit or inside your home? NONE * PCP DR. TRUJILLO * Pharmacy [facility] * Preadmission Environment Home with Family * ADLs Partial Dependent * Partial ADLs (Assistance needed) Medication Management * Equipment Cane * Other Equipment NO MEDICAL EQUIPMENT PROVIDER PREFERENCE * List name and contact numbers for known caregivers / representatives who currently or will assist patient after discharge: KINGA DUFFY, SPOUSE, LELA CM, DTR IN [place], [place] [phone] * Verbal permission to speak to the caregivers and representatives has been obtained from the patient. Yes * Community resources currently utilized None * Please name any agencies selected above. NONE * Additional services required to return to the preadmission environment? No * Can the patient safely return to the preadmission environment? Yes * Has this patient been hospitalized within the prior 30 days at any hospital? No Coverage Notice Reviewer: [email or web address] Rafiq Diaz Notice Issued Date-Time: 01/17/2019 14:45 Notice Type: IM Discharge Notice Notice Delivered To: Patient Relationship to Patient: Associate Professor Of Pathology Name: Delivery Method: HAND - Hand Delivered Eufemia Days: Prior Verbal Notification: Recipient Understood Notice: Recipient Signature: Yes Med Rec Note Co-signed by Attending: Coverage Notice Comment: Reviewer: [email or web address] Rafiq Echols Notice Issued Date-Time: 01/20/2019 13:22 Notice Type: Patient Choice Letter Notice Delivered To: Family Member Relationship to Patient: Daughter Associate Professor Of Pathology Name: Savanna Cm Delivery Method: PHONE - Phone Eufemia Days: Prior Verbal Notification: Recipient Understood Notice: Yes Recipient Signature: Med Rec Note Co-signed by Attending: Coverage Notice Comment: [facility] for [facility] shelter Reviewer: [id number] Rafiq Echols Notice Issued Date-Time: 02/01/2019 14:09 Notice Type: IM Discharge Notice Notice Delivered To: Family Member Relationship to Patient: Daughter Associate Professor Of Pathology Name: Savanna Cm Delivery Method: PHONE - Phone Eufemia Days: Prior Verbal Notification: Recipient Understood Notice: Yes Recipient Signature: Med Rec Note Co-signed by Attending: Coverage Notice Comment: Telephoned daughter of disdcharge BRANDON, voiced understanding and agrees with discharge to [facility] export: 01/31/19 8:29 am Patient Name: ROSIE DUFFY Page [id number] at 1424 All edits/amendments must be made on the electronic document DICTATION DATE: 02/01/19 142 PIPE BUFFER: DONNA 02/01/19 1424 RPT#: [id number] DC DATE: STATUS: ADM IN [facility] [address] [place] [address] END OF REPORT
--- NOTE | 2019-02-01 15:38 | NUR ---
I have reviewed this patient and I concur with the Shift Assessment completed by the Licensed Practical Nurse today this shift.
[2019-02-01 17:06] VITALS: BP 111/60
--- NOTE | 2019-02-01 18:16 | NUR ---
PT DISCHARGED TO [facility] VIA STRETCHER BY AMBULANCE. DISCONTINUED IV, CATHETER TIP INTACT. PT DENIES ANYTHING FURTHER.
== END 2019-02-01 18:17 | DRG 871 ==
LOC: D.ER 19:46 → D.M2 22:31 → D.MS 22:31 → D.M3 22:31 → D.M2 01-14 13:36 → D.ICU 01-18 09:18 → D.MS 01-19 17:19 → D.SDCHOLD 01-21 12:22 → D.MS 01-21 12:25 → D.SDCHOLD 01-25 16:55 → D.MS 01-25 16:56
PROVIDERS: Family Medicine; Internal Medicine Pulmonary Disease; Specialist; ADMIT Family Medicine; ATTEND Family Medicine
PROC: 0W9B3ZZ Drainage of Left Pleural Cavity, Percutaneous Approach (ICD-10-PCS; principal; 2019-01-26 13:39)
DX: A41.9 Sepsis, unspecified organism (principal); J18.1 Lobar pneumonia, unspecified organism; J96.02 Acute respiratory failure with hypercapnia; G93.41 Metabolic encephalopathy; S36.00XA Unspecified injury of spleen, initial encounter; N39.0 Urinary tract infection, site not specified; J90 Pleural effusion, not elsewhere classified; E87.2 Acidosis; E87.0 Hyperosmolality and hypernatremia; N28.9 Disorder of kidney and ureter, unspecified; K75.9 Inflammatory liver disease, unspecified; X58.XXXA Exposure to other specified factors, initial encounter; B96.20 Unspecified Escherichia coli [E. coli] as the cause of diseases classified elsewhere; Z66 Do not resuscitate; G30.9 Alzheimer's disease, unspecified; F02.80 Dementia in other diseases classified elsewhere, unspecified severity, without behavioral disturbance, psychotic disturbance, mood disturbance, and anxiety

== ENCOUNTER 2019-03-27 16:55 | Emergency (ER) | payer MEDICARE, BC ==
[~2019-03-27] VITALS: Ht 165.1 cm; Wt 63.6 kg
[~2019-03-27 16:55] MED LIST: BAYER CHEWABLE81 MG PO; BENTYL10 MG PO; COZAAR100 MG PO; HYDROCHLOROTH12.5 M1 PO; PLAVIX75 MG PO; VITAMIN D2000 UNIT PO; ZOLOFT50 MG PO
[2019-03-27 17:13] VITALS: Ht 165.1 cm; Wt 63.6 kg
[2019-03-27 17:35] LABS: BASOPHILS 0.1 % (0-2); EOSINOPHILS 0.6 % (0-7); HEMATOCRIT 35.4 % (36.0-48.0); HEMOGLOBIN 11.8 g/dL (12-16); IMMATURE GRANULOCYTES 0.3 % (0-5); LYMPHOCYTES 9.6 % (15-50); MCH 27.8 pg (26.0-34.0); MCHC 33.3 g/dL (31.0-37.0); MCV 83.5 fL (80.0-100.0); MEAN PLATELET VOLUME 9.9 fL (7.4-10.4); MONOCYTES 8.5 % (2-11); NEUTROPHILS 80.9 % (40-80); PLATELET COUNT 439 10x3/uL (130-400); RBC 4.24 10x6/uL (4.00-5.40); RDW 15.4 % (11.5-14.5); WBC 14.9 10x3/uL (4.8-10.8)
[2019-03-27 17:48] LABS: ALBUMIN 2.5 g/dL (3.4-5.0); ANION GAP 4.7 mmol/L (8-16); BILIRUBIN - TOTAL 0.39 mg/dL (0.2-1.3); CALCIUM 8.9 mg/dL (8.5-10.1); CARBON DIOXIDE 35.3 mmol/L (21.0-32.0); CREATININE - SERUM 0.9 mg/dL (0.6-1.3); PROTEIN - SERUM 7.2 g/dL (6.4-8.2)
[2019-03-27 17:56] LABS: APTT 31.2 SECONDS (22.8-39.4); INR 1.15 (0.85-1.17); PROTIME 14.2 SECONDS (11.6-15.0)
[2019-03-27 18:12] LABS: PRO BNP 2262 pg/mL (0-450)
[2019-03-27 18:13] LABS: LIPASE 48 U/L (73-393); TROPONIN-I < 0.017 ng/mL (0.000-0.060)
[2019-03-27 19:55] LABS: HEMATOCRIT 36.1 % (36.0-48.0); HEMOGLOBIN 11.9 g/dL (12-16)
[2019-03-27 21:09] LABS: APPEARANCE CLOUDY (CLEAR); BILIRUBIN NEGATIVE (NEGATIVE); COLOR YELLOW (YELLOW); GLUCOSE NEGATIVE (NEGATIVE); KETONE NEGATIVE (NEGATIVE); NITRITE POSITIVE (NEGATIVE); PROTEIN TRACE mg/dL (NEGATIVE); UROBILINOGEN NORMAL (NORMAL)
[2019-03-27 21:10] LABS: BACTERIA MANY /hpf (NONE SEEN); RED CELLS - URINE OCC /hpf (0-5)
[2019-03-27 22:14] VITALS: BP 138/60
== END 2019-03-27 22:16 | disposition short-term general hospital (02) ==
LOC: D.ER 16:55
PROVIDERS: Family Medicine
DX: K92.2 Gastrointestinal hemorrhage, unspecified (principal)